=== PATIENT | male | born 1955 | race Caucasian/White ===

== ENCOUNTER 2020-08-15 16:35 | Inpatient (IN) ==
[2020-08-15] MEDS ORDERED: Piperacillin/Tazobactam 3.375 GM in 0.9 % Sodium Chloride Mini Bag 100 ML IVPB STA (16:48)
[2020-08-15] MEDS ORDERED: Ondansetron 4 MG/2 ML VIAL IVP STA (16:58)
[2020-08-15] MEDS ORDERED: Piperacillin/Tazobactam 3.375 GM in Water for inj. (sterile) 20 ML IVP STA (17:12)
[2020-08-15] MEDS ORDERED: Acetaminophen 325 MG TABLET PO PRN (18:51)
[2020-08-15] MEDS ORDERED: *HR* OxyCODONE Immed Rel 5 MG TABLET PO PRN (18:51)
[2020-08-15] MEDS ORDERED: D5% in Water 1,000 ML IVC PRN (18:51)
[2020-08-15] MEDS ORDERED: Naloxone 0.4 MG/ML INJ IVP PRN (18:51)
[2020-08-15] MEDS ORDERED: Dextrose Gel 15 GM/37.5 ML TUBE PO PRN ×2 (18:51)
[2020-08-15] MEDS ORDERED: *HR* Dextrose 50 % in Water (Vial) 50 ML VIAL IVP PRN (18:51)
[2020-08-15] MEDS ORDERED: Ondansetron 4 MG/2 ML VIAL IVP PRN (18:51)
[2020-08-15] MEDS ORDERED: Vancomycin 1,250 MG/262.5 ML IV.SOLN IVPB ONE (19:00)
[2020-08-15] MEDS: Gabapentin 300 MG CAPSULE PO SCH (20:52)
[2020-08-15] MEDS: Insulin LISPRO 300 UNITS/3 ML VIAL SUBQ SCH (20:55)
[2020-08-15 21:19] LABS: Basophils # 0.1 K/mcL (0.0-0.2); Basophils % 0.5 %; Eosinophils # 0.2 K/mcL (0.0-0.6); Eosinophils % 2.3 %; Hematocrit 35.6 % (37.5-50.1); Hemoglobin 11.7 g/dL (12.9-16.9); Immature Granulocytes % 0.3 % (0-4); Lymphocytes # 1.7 K/mcL (0.6-4.6); Lymphocytes % 17.5 %; Mean Corpuscular HGB Conc 32.9 g/dL (31.6-35.5); Mean Corpuscular Hemoglobin 28.7 pg (28.0-33.3); Mean Corpuscular Volume 87.3 fL (83.0-100.0); Mean Platelet Volume 9.4 fL (9.4-12.4); Monocytes # 1.1 K/mcL (0.0-1.3); Monocytes % 11.5 %; Neutrophils # 6.5 K/mcL (1.6-8.9); Platelet Count 301 K/mcL (140-400); Red Blood Count 4.08 M/mcL (4.19-5.50); Red Cell Distribution Width 12.4 % (11.5-14.5); Segmented Neutrophils % 67.9 %; White Blood Count 9.5 K/mcL (4.3-11.1)
[2020-08-15 21:39] LABS: Alanine Aminotransferase 16 Units/L (7-52); Albumin 3.4 g/dL (3.5-5.7); Alkaline Phosphatase 41 Units/L (34-104); Aspartate Amino Transferase 12 Units/L (13-39); BUN/Creatinine Ratio 13 (6-26); Bilirubin,Total 0.7 mg/dL (0.3-1.0); Blood Urea Nitrogen 12 mg/dL (8-23); C-Reactive Protein 109 mg/L (Less than 10); Calcium 8.4 mg/dL (8.6-10.3); Carbon Dioxide 25 mEq/L (23-29); Chloride 101 mEq/L (98-107); Globulin 3.3 g/dL (2.4-3.5); Glucose 162 mg/dL (70-105); Osmolality,Calculated 285 (280-300); Potassium 3.6 mEq/L (3.5-5.1); Sodium 136 mEq/L (136-145); Total Protein 6.7 g/dL (6.4-8.9); eGFR For African Americans > 60 (> 60); eGFR For Non-African Americans > 60 (> 60)
[2020-08-15 23:41] LABS: Estimated Average Glucose 349 mg/dl; Hemoglobin A1C 13.8 %
[2020-08-16] MEDS: Piperacillin/Tazobactam 3.375 GM in 0.9 % Sodium Chloride Mini Bag 100 ML IVPB SCH ×3 (00:14→17:19)
[2020-08-16 04:48] LABS: Basophils % 0.5 %; Eosinophils # 0.3 K/mcL (0.0-0.6); Eosinophils % 3.3 %; Hematocrit 34.4 % (37.5-50.1); Hemoglobin 11.1 g/dL (12.9-16.9); Immature Granulocytes % 0.2 % (0-4); Lymphocytes # 1.7 K/mcL (0.6-4.6); Lymphocytes % 19.2 %; Mean Corpuscular HGB Conc 32.3 g/dL (31.6-35.5); Mean Corpuscular Hemoglobin 28.6 pg (28.0-33.3); Mean Corpuscular Volume 88.7 fL (83.0-100.0); Mean Platelet Volume 9.6 fL (9.4-12.4); Monocytes # 1.2 K/mcL (0.0-1.3); Monocytes % 13.5 %; Neutrophils # 5.6 K/mcL (1.6-8.9); Platelet Count 287 K/mcL (140-400); Red Blood Count 3.88 M/mcL (4.19-5.50); Red Cell Distribution Width 12.3 % (11.5-14.5); Segmented Neutrophils % 63.3 %; White Blood Count 8.8 K/mcL (4.3-11.1)
[2020-08-16 05:03] LABS: BUN/Creatinine Ratio 12 (6-26); Blood Urea Nitrogen 13 mg/dL (8-23); Calcium 8.2 mg/dL (8.6-10.3); Carbon Dioxide 27 mEq/L (23-29); Chloride 102 mEq/L (98-107); Glucose 241 mg/dL (70-105); Osmolality,Calculated 292 (280-300); Potassium 3.5 mEq/L (3.5-5.1); Sodium 137 mEq/L (136-145); eGFR For African Americans > 60 (> 60); eGFR For Non-African Americans > 60 (> 60)
[2020-08-16] MEDS: Vancomycin 1,250 MG/262.5 ML IV.SOLN IVPB SCH ×2 (05:59→18:11)
[2020-08-16] MEDS: Insulin DETEMIR 100 UNIT/ML X5UNITS SUBQ SCH ×2 (08:20→22:01)
[2020-08-16] MEDS: Insulin LISPRO 300 UNITS/3 ML VIAL SUBQ SCH ×4 (08:21→22:01)
[2020-08-16] MEDS ORDERED: Albuterol 2.5 MG/3 ML NEBULIZER IH PRN (17:01)
[2020-08-16] MEDS: *HR* Heparin 5,000 UNIT/ML VIAL SQ SCH (17:20)
[2020-08-16] MEDS: Magnesium Oxide 400 MG TABLET PO SCH (18:11)
[2020-08-16] MEDS: Gabapentin 300 MG CAPSULE PO SCH (22:01)
[2020-08-16] MEDS: *HR* HYDROcodone/Acet 5/325 mg TABLET PO PRN (22:19)
[2020-08-17] MEDS: Piperacillin/Tazobactam 3.375 GM in 0.9 % Sodium Chloride Mini Bag 100 ML IVPB SCH ×3 (00:01→17:21)
[2020-08-17 02:27] LABS: Basophils # 0.1 K/mcL (0.0-0.2); Basophils % 0.5 %; Eosinophils # 0.2 K/mcL (0.0-0.6); Eosinophils % 2.3 %; Hematocrit 32.6 % (37.5-50.1); Hemoglobin 10.6 g/dL (12.9-16.9); Immature Granulocytes % 0.4 % (0-4); Lymphocytes # 1.8 K/mcL (0.6-4.6); Lymphocytes % 17.8 %; Mean Corpuscular HGB Conc 32.5 g/dL (31.6-35.5); Mean Corpuscular Hemoglobin 29.4 pg (28.0-33.3); Mean Corpuscular Volume 90.6 fL (83.0-100.0); Mean Platelet Volume 9.5 fL (9.4-12.4); Monocytes # 1.2 K/mcL (0.0-1.3); Monocytes % 12.4 %; Neutrophils # 6.6 K/mcL (1.6-8.9); Platelet Count 282 K/mcL (140-400); Segmented Neutrophils % 66.6 %; White Blood Count 9.8 K/mcL (4.3-11.1)
[2020-08-17 02:49] LABS: Calcium 7.8 mg/dL (8.6-10.3); Potassium 3.5 mEq/L (3.5-5.1)
[2020-08-17] MEDS: *HR* Heparin 5,000 UNIT/ML VIAL SQ SCH ×2 (06:04→17:23)
[2020-08-17] MEDS ORDERED: Ringers Solution, Lactated 1,000 ML IVC SCH (07:15)
[2020-08-17] MEDS: Aspirin Enteric Coated 81 MG Tablet PO SCH (09:20)
[2020-08-17] MEDS: Magnesium Oxide 400 MG TABLET PO SCH (09:20)
[2020-08-17] MEDS: Insulin LISPRO 300 UNITS/3 ML VIAL SUBQ SCH ×7 (09:21→20:23)
[2020-08-17] MEDS: Insulin DETEMIR 100 UNIT/ML X5UNITS SUBQ SCH ×2 (09:37→20:25)
[2020-08-17] MEDS: Vancomycin 1,500 MG/265 ML IV.SOLN IVPB SCH ×2 (10:54→21:47)
[2020-08-17] MEDS: Vancomycin 1,250 MG/262.5 ML IV.SOLN IVPB SCH (15:56)
[2020-08-17 18:13] LABS: Adenovirus F 40/41 PCR Not detected (Not detect); Astrovirus PCR Not detected (Not detect); C.difficile Toxin A/B Gene PCR Not detected (Not detect); Campylobacter by PCR Not detected (Not detect); Cryptosporidium by PCR Not detected (Not detect); Cyclospora cayetanensis PCR Not detected (Not detect); E. coli O157 by PCR Not detected (Not detect); Entamoeba histolytica PCR Not detected (Not detect); Enteroaggregative E.coli(EAEC) Not detected (Not detect); Enteropathogenic E.coli(EPEC) Not detected (Not detect); Enterotoxigenic E.coli (ETEC) Not detected (Not detect); Giardia lamblia PCR Not detected (Not detect); Norovirus GI/GII PCR Not detected (Not detect); Plesiomonas shigelloides PCR Not detected (Not detect); Rotavirus A PCR Not detected (Not detect); Salmonella PCR Not detected (Not detect); Sapovirus PCR Not detected (Not detect); Shig/EnteroinvasiveE coli EIEC Not detected (Not detect); Shigalike tox-prod E coli STEC Not detected (Not detect); Vibrio PCR Not detected (Not detect); Vibrio cholerae PCR Not detected (Not detect); Yersinia enterocolitica PCR Not detected (Not detect)
[2020-08-17] MEDS: Gabapentin 300 MG CAPSULE PO SCH (20:25)
[2020-08-17] MEDS: *HR* HYDROcodone/Acet 5/325 mg TABLET PO PRN (20:26)
[2020-08-17] MEDS ORDERED: Vancomycin 1 EACH in 0.9 % Sodium Chloride 250 ML IVPB SCH (22:00)
[2020-08-18] MEDS: Piperacillin/Tazobactam 3.375 GM in 0.9 % Sodium Chloride Mini Bag 100 ML IVPB SCH ×3 (00:53→18:29)
[2020-08-18] MEDS: *HR* Heparin 5,000 UNIT/ML VIAL SQ SCH ×2 (05:09→18:30)
[2020-08-18 05:42] LABS: Basophils % 0.5 %; Eosinophils # 0.3 K/mcL (0.0-0.6); Eosinophils % 3.2 %; Hematocrit 32.9 % (37.5-50.1); Hemoglobin 10.5 g/dL (12.9-16.9); Immature Granulocytes % 0.3 % (0-4); Lymphocytes # 1.4 K/mcL (0.6-4.6); Lymphocytes % 15.9 %; Mean Corpuscular HGB Conc 31.9 g/dL (31.6-35.5); Mean Corpuscular Hemoglobin 28.5 pg (28.0-33.3); Mean Corpuscular Volume 89.4 fL (83.0-100.0); Mean Platelet Volume 9.6 fL (9.4-12.4); Monocytes # 1.2 K/mcL (0.0-1.3); Monocytes % 13.8 %; Neutrophils # 5.8 K/mcL (1.6-8.9); Platelet Count 289 K/mcL (140-400); Red Blood Count 3.68 M/mcL (4.19-5.50); Segmented Neutrophils % 66.3 %; White Blood Count 8.8 K/mcL (4.3-11.1)
[2020-08-18 06:05] LABS: Calcium 8.1 mg/dL (8.6-10.3); Potassium 3.6 mEq/L (3.5-5.1)
[2020-08-18 06:07] LABS: Magnesium 1.9 mg/dL (1.6-2.6); Phosphorous 3.3 mg/dL (2.7-4.5)
[2020-08-18] MEDS: Magnesium Oxide 400 MG TABLET PO SCH (08:25)
[2020-08-18] MEDS: Aspirin Enteric Coated 81 MG Tablet PO SCH (08:25)
[2020-08-18] MEDS: Insulin LISPRO 300 UNITS/3 ML VIAL SUBQ SCH ×7 (08:27→21:47)
[2020-08-18] MEDS ORDERED: Lidocaine -MPF 2% 2 ML VIAL ONE (18:49)
[2020-08-18] MEDS ORDERED: Albuterol 2.5 MG/3 ML NEBULIZER IH PRN (20:05)
[2020-08-18] MEDS ORDERED: Dextrose Gel 15 GM/37.5 ML TUBE PO PRN ×2 (20:05)
[2020-08-18] MEDS ORDERED: Acetaminophen 325 MG TABLET PO PRN (20:05)
[2020-08-18] MEDS ORDERED: Naloxone 0.4 MG/ML INJ IVP PRN (20:05)
[2020-08-18] MEDS ORDERED: D5% in Water 1,000 ML IVC PRN (20:05)
[2020-08-18] MEDS ORDERED: *HR* Dextrose 50 % in Water (Vial) 50 ML VIAL IVP PRN (20:05)
[2020-08-18] MEDS ORDERED: *HR* OxyCODONE Immed Rel 5 MG TABLET PO PRN (20:05)
[2020-08-18] MEDS ORDERED: Perflutren Lipid Microsphere 1.3 ML in 0.9 % Sodium Chloride 8.7 ML IVP PRN (20:23)
[2020-08-18] MEDS ORDERED: Insulin DETEMIR 100 UNIT/ML X5UNITS SUBQ SCH ×2 (21:00)
[2020-08-18] MEDS: Gabapentin 300 MG CAPSULE PO SCH (22:00)
[2020-08-19] MEDS: Piperacillin/Tazobactam 3.375 GM in 0.9 % Sodium Chloride Mini Bag 100 ML IVPB SCH ×4 (00:06→23:52)
[2020-08-19] MEDS: *HR* Heparin 5,000 UNIT/ML VIAL SQ SCH ×2 (05:28→16:43)
[2020-08-19 06:41] LABS: Basophils % 0.4 %; Eosinophils # 0.2 K/mcL (0.0-0.6); Hematocrit 34.2 % (37.5-50.1); Immature Granulocytes % 0.2 % (0-4); Lymphocytes # 1.1 K/mcL (0.6-4.6); Lymphocytes % 12.1 %; Mean Corpuscular HGB Conc 32.2 g/dL (31.6-35.5); Mean Corpuscular Hemoglobin 28.4 pg (28.0-33.3); Mean Corpuscular Volume 88.1 fL (83.0-100.0); Mean Platelet Volume 9.1 fL (9.4-12.4); Monocytes # 0.9 K/mcL (0.0-1.3); Monocytes % 9.8 %; Neutrophils # 6.8 K/mcL (1.6-8.9); Platelet Count 304 K/mcL (140-400); Red Blood Count 3.88 M/mcL (4.19-5.50); Red Cell Distribution Width 12.1 % (11.5-14.5); Segmented Neutrophils % 75.5 %
[2020-08-19 06:53] LABS: BUN/Creatinine Ratio 12 (6-26); Blood Urea Nitrogen 14 mg/dL (8-23); Calcium 8.1 mg/dL (8.6-10.3); Carbon Dioxide 25 mEq/L (23-29); Chloride 108 mEq/L (98-107); Glucose 235 mg/dL (70-105); Magnesium 1.9 mg/dL (1.6-2.6); Osmolality,Calculated 298 (280-300); Phosphorous 3.2 mg/dL (2.7-4.5); Potassium 3.6 mEq/L (3.5-5.1); Sodium 140 mEq/L (136-145); eGFR For African Americans > 60 (> 60); eGFR For Non-African Americans > 60 (> 60)
[2020-08-19] MEDS ORDERED: Insulin LISPRO 300 UNITS/3 ML VIAL SUBQ SCH (08:00)
[2020-08-19] MEDS: Aspirin Enteric Coated 81 MG Tablet PO SCH (08:47)
[2020-08-19] MEDS: *HR* HYDROcodone/Acet 5/325 mg TABLET PO PRN ×2 (08:47→19:11)
[2020-08-19] MEDS: Insulin LISPRO 300 UNITS/3 ML VIAL SUBQ SCH ×7 (08:48→20:27)
[2020-08-19] MEDS: Magnesium Oxide 400 MG TABLET PO SCH (08:48)
[2020-08-19] MEDS: Insulin DETEMIR 100 UNIT/ML X5UNITS SUBQ SCH ×2 (16:31→20:26)
[2020-08-19] MEDS: Ondansetron 4 MG/2 ML VIAL IVP PRN (20:24)
[2020-08-19] MEDS: Lactobacillus 1 EACH CAP.SPRINK PO SCH (20:24)
[2020-08-19] MEDS: Gabapentin 300 MG CAPSULE PO SCH (20:41)
[2020-08-20 05:11] LABS: Hematocrit 31.2 % (37.5-50.1); Hemoglobin 9.8 g/dL (12.9-16.9)
[2020-08-20 05:31] LABS: BUN/Creatinine Ratio 11 (6-26); Blood Urea Nitrogen 15 mg/dL (8-23); Carbon Dioxide 26 mEq/L (23-29); Chloride 108 mEq/L (98-107); Glucose 254 mg/dL (70-105); Osmolality,Calculated 301 (280-300); Phosphorous 3.5 mg/dL (2.7-4.5); Potassium 3.6 mEq/L (3.5-5.1); Sodium 141 mEq/L (136-145); eGFR For African Americans > 60 (> 60); eGFR For Non-African Americans 54 (> 60)
[2020-08-20] MEDS: *HR* Heparin 5,000 UNIT/ML VIAL SQ SCH ×2 (05:53→16:43)
[2020-08-20] MEDS: Lactobacillus 1 EACH CAP.SPRINK PO SCH ×2 (09:02→20:46)
[2020-08-20] MEDS: Magnesium Oxide 400 MG TABLET PO SCH (09:02)
[2020-08-20] MEDS: Aspirin Enteric Coated 81 MG Tablet PO SCH (09:02)
[2020-08-20] MEDS: lisinopriL 5 MG TABLET PO SCH (09:03)
[2020-08-20] MEDS: Piperacillin/Tazobactam 3.375 GM in 0.9 % Sodium Chloride Mini Bag 100 ML IVPB SCH (09:03)
[2020-08-20] MEDS: Insulin LISPRO 300 UNITS/3 ML VIAL SUBQ SCH ×5 (09:06→16:24)
[2020-08-20] MEDS ORDERED: 0.9 % Sodium Chloride 1,000 ML IVC SCH (09:15)
[2020-08-20] MEDS: Insulin DETEMIR 100 UNIT/ML X5UNITS SUBQ SCH ×3 (09:15→20:46)
[2020-08-20] MEDS ORDERED: Insulin LISPRO 300 UNITS/3 ML VIAL SUBQ SCH (13:20)
[2020-08-20] MEDS: cefTRIAXone 2,000 MG in 0.9 % Sodium Chloride Mini Bag 100 ML IVPB SCH (13:39)
[2020-08-20] MEDS: metroNIDAZOLE 500 MG TABLET PO SCH ×2 (15:24→20:46)
[2020-08-20] MEDS: Gabapentin 300 MG CAPSULE PO SCH (20:46)
[2020-08-20] MEDS: *HR* HYDROcodone/Acet 5/325 mg TABLET PO PRN (20:46)
[2020-08-21 03:29] LABS: Basophils % 0.4 %; Eosinophils # 0.2 K/mcL (0.0-0.6); Eosinophils % 2.8 %; Hematocrit 31.5 % (37.5-50.1); Hemoglobin 10.3 g/dL (12.9-16.9); Immature Granulocytes % 0.4 % (0-4); Lymphocytes # 1.3 K/mcL (0.6-4.6); Lymphocytes % 15.8 %; Mean Corpuscular HGB Conc 32.7 g/dL (31.6-35.5); Mean Corpuscular Hemoglobin 28.9 pg (28.0-33.3); Mean Corpuscular Volume 88.2 fL (83.0-100.0); Mean Platelet Volume 9.1 fL (9.4-12.4); Monocytes # 1.1 K/mcL (0.0-1.3); Monocytes % 13.4 %; Neutrophils # 5.6 K/mcL (1.6-8.9); Platelet Count 346 K/mcL (140-400); Red Blood Count 3.57 M/mcL (4.19-5.50); Segmented Neutrophils % 67.2 %; White Blood Count 8.3 K/mcL (4.3-11.1)
[2020-08-21 03:49] LABS: % Iron Saturation 10 % (20-55); BUN/Creatinine Ratio 10 (6-26); Blood Urea Nitrogen 12 mg/dL (8-23); Calcium 7.8 mg/dL (8.6-10.3); Carbon Dioxide 28 mEq/L (23-29); Chloride 108 mEq/L (98-107); Glucose 184 mg/dL (70-105); Iron 30 mcg/dL (65-175); Magnesium 1.9 mg/dL (1.6-2.6); Osmolality,Calculated 299 (280-300); Phosphorous 3.1 mg/dL (2.7-4.5); Potassium 3.3 mEq/L (3.5-5.1); Sodium 142 mEq/L (136-145); Transferrin 210 mg/dL (203-362); eGFR For African Americans > 60 (> 60); eGFR For Non-African Americans 58 (> 60)
[2020-08-21 04:07] LABS: Ferritin 76 ng/mL (20-250)
[2020-08-21 04:12] LABS: Folate 6.8 ng/mL (3.0-16.0)
[2020-08-21] MEDS: *HR* Heparin 5,000 UNIT/ML VIAL SQ SCH ×2 (06:15→20:18)
[2020-08-21] MEDS: Insulin LISPRO 300 UNITS/3 ML VIAL SUBQ SCH ×4 (10:03→20:18)
[2020-08-21] MEDS: lisinopriL 5 MG TABLET PO SCH (10:05)
[2020-08-21] MEDS: metroNIDAZOLE 500 MG TABLET PO SCH ×3 (10:06→20:16)
[2020-08-21] MEDS: cefTRIAXone 2,000 MG in 0.9 % Sodium Chloride Mini Bag 100 ML IVPB SCH (10:06)
[2020-08-21] MEDS: Aspirin Enteric Coated 81 MG Tablet PO SCH (10:06)
[2020-08-21] MEDS: Magnesium Oxide 400 MG TABLET PO SCH (10:06)
[2020-08-21] MEDS: Lactobacillus 1 EACH CAP.SPRINK PO SCH ×2 (10:06→20:16)
[2020-08-21] MEDS: Ondansetron 4 MG/2 ML VIAL IVP PRN (10:08)
[2020-08-21] MEDS: Insulin DETEMIR 100 UNIT/ML X5UNITS SUBQ SCH ×2 (10:22→20:17)
[2020-08-21] MEDS ORDERED: *HR* Midazolam HCl 2 MG/2 ML VIAL ONE (15:57)
[2020-08-21] MEDS ORDERED: *HR* FentaNYL (PF) 100 MCG/2 ML VIAL ONE (15:57)
[2020-08-21] MEDS ORDERED: *HR* Propofol 200 MG/20 ML VIAL IVP ONE (15:57)
[2020-08-21] MEDS ORDERED: Ondansetron 4 MG/2 ML VIAL ONE (16:22)
[2020-08-21] MEDS ORDERED: Promethazine 6.25 MG in Water for inj. (sterile) 20 ML IVPB PRN ×2 (16:32→17:53)
[2020-08-21] MEDS ORDERED: *HR* Labetalol 20 MG/4 ML SYRINGE IVP PRN ×2 (16:32→17:53)
[2020-08-21] MEDS ORDERED: *HR* HYDROcodone/Acet 7.5/325 mg TABLET PO PRN ×2 (16:32→17:53)
[2020-08-21] MEDS ORDERED: *HR* HYDROmorphone 2 MG TABLET PO PRN ×2 (16:32→17:53)
[2020-08-21] MEDS ORDERED: Ketorolac 15 MG/ML VIAL IVP PRN ×2 (16:32→17:53)
[2020-08-21] MEDS ORDERED: D5% in Water 1,000 ML IVC PRN (17:53)
[2020-08-21] MEDS ORDERED: Naloxone 0.4 MG/ML INJ IVP PRN (17:53)
[2020-08-21] MEDS ORDERED: Perflutren Lipid Microsphere 1.3 ML in 0.9 % Sodium Chloride 8.7 ML IVP PRN (17:53)
[2020-08-21] MEDS ORDERED: *HR* Dextrose 50 % in Water (Vial) 50 ML VIAL IVP PRN (17:53)
[2020-08-21] MEDS ORDERED: Acetaminophen 325 MG TABLET PO PRN (17:53)
[2020-08-21] MEDS ORDERED: Dextrose Gel 15 GM/37.5 ML TUBE PO PRN ×2 (17:53)
[2020-08-21] MEDS ORDERED: Albuterol 2.5 MG/3 ML NEBULIZER IH PRN (17:53)
[2020-08-21] MEDS: *HR* HYDROcodone/Acet 5/325 mg TABLET PO PRN (20:16)
[2020-08-21] MEDS: Sennosides/Docusate Sodium TABLET PO SCH (20:16)
[2020-08-21] MEDS: Gabapentin 300 MG CAPSULE PO SCH (20:16)
[2020-08-21] MEDS ORDERED: Sennosides/Docusate Sodium TABLET PO SCH (21:00)
[2020-08-22] MEDS: Ondansetron 4 MG/2 ML VIAL IVP PRN (05:11)
[2020-08-22] MEDS: *HR* Heparin 5,000 UNIT/ML VIAL SQ SCH ×2 (05:11→16:26)
[2020-08-22 05:27] LABS: Basophils % 0.3 %; Eosinophils # 0.2 K/mcL (0.0-0.6); Hematocrit 33.4 % (37.5-50.1); Hemoglobin 10.8 g/dL (12.9-16.9); Immature Granulocytes % 0.5 % (0-4); Lymphocytes # 1.1 K/mcL (0.6-4.6); Lymphocytes % 10.4 %; Mean Corpuscular HGB Conc 32.3 g/dL (31.6-35.5); Mean Corpuscular Hemoglobin 28.6 pg (28.0-33.3); Mean Corpuscular Volume 88.6 fL (83.0-100.0); Mean Platelet Volume 8.8 fL (9.4-12.4); Monocytes # 1.2 K/mcL (0.0-1.3); Monocytes % 10.8 %; Neutrophils # 8.1 K/mcL (1.6-8.9); Platelet Count 345 K/mcL (140-400); Red Blood Count 3.77 M/mcL (4.19-5.50); Red Cell Distribution Width 12.3 % (11.5-14.5); White Blood Count 10.7 K/mcL (4.3-11.1)
[2020-08-22 05:48] LABS: BUN/Creatinine Ratio 10 (6-26); Blood Urea Nitrogen 11 mg/dL (8-23); Calcium 8.2 mg/dL (8.6-10.3); Carbon Dioxide 30 mEq/L (23-29); Chloride 107 mEq/L (98-107); Glucose 101 mg/dL (70-105); Osmolality,Calculated 296 (280-300); Phosphorous 3.7 mg/dL (2.7-4.5); Potassium 3.5 mEq/L (3.5-5.1); Sodium 143 mEq/L (136-145); eGFR For African Americans > 60 (> 60); eGFR For Non-African Americans > 60 (> 60)
[2020-08-22] MEDS: Insulin LISPRO 300 UNITS/3 ML VIAL SUBQ SCH ×4 (08:08→21:21)
[2020-08-22] MEDS: cefTRIAXone 2,000 MG in 0.9 % Sodium Chloride Mini Bag 100 ML IVPB SCH (08:36)
[2020-08-22] MEDS: Lactobacillus 1 EACH CAP.SPRINK PO SCH ×2 (08:38→21:20)
[2020-08-22] MEDS: Aspirin Enteric Coated 81 MG Tablet PO SCH (08:38)
[2020-08-22] MEDS: Magnesium Oxide 400 MG TABLET PO SCH (08:39)
[2020-08-22] MEDS: Sennosides/Docusate Sodium TABLET PO SCH ×2 (08:39→21:20)
[2020-08-22] MEDS: metroNIDAZOLE 500 MG TABLET PO SCH ×3 (08:39→21:20)
[2020-08-22] MEDS: Insulin DETEMIR 100 UNIT/ML X5UNITS SUBQ SCH ×2 (08:43→21:21)
[2020-08-22] MEDS ORDERED: lisinopriL 5 MG TABLET PO SCH (09:00)
[2020-08-22] MEDS ORDERED: lisinopriL 5 MG TABLET PO ONE (09:21)
[2020-08-22 11:19] LABS: Adenovirus Not Detected (Not Detect); Bordetella Pertussis Not Detected (Not Detect); Chlamydophila pneumoniae Not Detected (Not Detect); Coronavirus 229E Not Detected (Not Detect); Coronavirus HKU1 Not Detected (Not Detect); Coronavirus NL63 Not Detected (Not Detect); Coronavirus OC43 Not Detected (Not Detect); Human Metapneumovirus Not Detected (Not Detect); Human Rhinovirus/Enterovirus Not Detected (Not Detect); Influenza A Subtype 2009 H1 Not Detected (Not Detect); Influenza B Not Detected (Not Detect); Mycoplasma pneumoniae Not Detected (Not Detect); Parainfluenza Virus 1 Not Detected (Not Detect); Parainfluenza Virus 2 Not Detected (Not Detect); Parainfluenza Virus 3 Not Detected (Not Detect); Parainfluenza Virus 4 Not Detected (Not Detect); Respiratory Syncytial Virus Not Detected (Not Detect); SARS-CoV-2 Not Detected (Not Detect)
[2020-08-22] MEDS: polyethylene glycoL 3350 17 GM POWD.PACK PO SCH (11:31)
[2020-08-22] MEDS: Gabapentin 300 MG CAPSULE PO SCH (21:20)
[2020-08-23] MEDS: Ondansetron 4 MG/2 ML VIAL IVP PRN ×3 (00:49→21:50)
[2020-08-23 04:51] LABS: Basophils % 0.4 %; Eosinophils # 0.1 K/mcL (0.0-0.6); Eosinophils % 0.6 %; Hematocrit 35.1 % (37.5-50.1); Hemoglobin 11.2 g/dL (12.9-16.9); Immature Granulocytes % 0.4 % (0-4); Lymphocytes # 1.1 K/mcL (0.6-4.6); Lymphocytes % 11.1 %; Mean Corpuscular HGB Conc 31.9 g/dL (31.6-35.5); Mean Corpuscular Hemoglobin 28.1 pg (28.0-33.3); Mean Platelet Volume 8.8 fL (9.4-12.4); Monocytes # 0.6 K/mcL (0.0-1.3); Monocytes % 6.7 %; Neutrophils # 7.7 K/mcL (1.6-8.9); Platelet Count 388 K/mcL (140-400); Red Blood Count 3.99 M/mcL (4.19-5.50); Segmented Neutrophils % 80.8 %; White Blood Count 9.6 K/mcL (4.3-11.1)
[2020-08-23] MEDS: polyethylene glycoL 3350 17 GM POWD.PACK PO SCH (04:53)
[2020-08-23 05:10] LABS: BUN/Creatinine Ratio 10 (6-26); Blood Urea Nitrogen 10 mg/dL (8-23); Calcium 8.4 mg/dL (8.6-10.3); Carbon Dioxide 29 mEq/L (23-29); Chloride 103 mEq/L (98-107); Glucose 178 mg/dL (70-105); Osmolality,Calculated 295 (280-300); Phosphorous 3.4 mg/dL (2.7-4.5); Potassium 3.8 mEq/L (3.5-5.1); Sodium 141 mEq/L (136-145); eGFR For African Americans > 60 (> 60); eGFR For Non-African Americans > 60 (> 60)
[2020-08-23] MEDS: *HR* Heparin 5,000 UNIT/ML VIAL SQ SCH ×2 (05:14→18:56)
[2020-08-23] MEDS: cefTRIAXone 2,000 MG in 0.9 % Sodium Chloride Mini Bag 100 ML IVPB SCH (08:44)
[2020-08-23] MEDS: Aspirin Enteric Coated 81 MG Tablet PO SCH (12:50)
[2020-08-23] MEDS: Insulin LISPRO 300 UNITS/3 ML VIAL SUBQ SCH ×4 (12:50→22:25)
[2020-08-23] MEDS: Lactobacillus 1 EACH CAP.SPRINK PO SCH ×2 (12:51→21:50)
[2020-08-23] MEDS: Sennosides/Docusate Sodium TABLET PO SCH ×2 (12:51→21:50)
[2020-08-23] MEDS: lisinopriL 5 MG TABLET PO SCH (12:51)
[2020-08-23] MEDS: Insulin DETEMIR 100 UNIT/ML X5UNITS SUBQ SCH ×2 (12:51→22:09)
[2020-08-23] MEDS: Magnesium Oxide 400 MG TABLET PO SCH (12:51)
[2020-08-23] MEDS: metroNIDAZOLE 500 MG TABLET PO SCH ×3 (18:55→21:50)
[2020-08-23] MEDS: Gabapentin 300 MG CAPSULE PO SCH (21:49)
[2020-08-23] MEDS: *HR* OxyCODONE Immed Rel 5 MG TABLET PO PRN (21:50)
[2020-08-24] MEDS: *HR* Heparin 5,000 UNIT/ML VIAL SQ SCH ×2 (05:29→17:13)
[2020-08-24 05:52] LABS: Basophils % 0.5 %; Eosinophils # 0.2 K/mcL (0.0-0.6); Eosinophils % 2.3 %; Hematocrit 34.3 % (37.5-50.1); Immature Granulocytes % 0.6 % (0-4); Lymphocytes # 1.4 K/mcL (0.6-4.6); Lymphocytes % 17.6 %; Mean Corpuscular HGB Conc 32.1 g/dL (31.6-35.5); Mean Corpuscular Hemoglobin 28.5 pg (28.0-33.3); Mean Corpuscular Volume 88.9 fL (83.0-100.0); Mean Platelet Volume 8.9 fL (9.4-12.4); Monocytes # 0.9 K/mcL (0.0-1.3); Monocytes % 11.8 %; Neutrophils # 5.4 K/mcL (1.6-8.9); Platelet Count 395 K/mcL (140-400); Red Blood Count 3.86 M/mcL (4.19-5.50); Red Cell Distribution Width 12.3 % (11.5-14.5); Segmented Neutrophils % 67.2 %
[2020-08-24 06:04] LABS: BUN/Creatinine Ratio 12 (6-26); Blood Urea Nitrogen 14 mg/dL (8-23); Calcium 8.7 mg/dL (8.6-10.3); Carbon Dioxide 34 mEq/L (23-29); Chloride 104 mEq/L (98-107); Glucose 182 mg/dL (70-105); Osmolality,Calculated 301 (280-300); Potassium 3.5 mEq/L (3.5-5.1); Sodium 143 mEq/L (136-145); eGFR For African Americans > 60 (> 60); eGFR For Non-African Americans > 60 (> 60)
[2020-08-24] MEDS: cefTRIAXone 2,000 MG in 0.9 % Sodium Chloride Mini Bag 100 ML IVPB SCH (08:18)
[2020-08-24] MEDS: metroNIDAZOLE 500 MG TABLET PO SCH ×3 (08:18→21:17)
[2020-08-24] MEDS: Sennosides/Docusate Sodium TABLET PO SCH ×2 (08:18→21:17)
[2020-08-24] MEDS: Insulin LISPRO 300 UNITS/3 ML VIAL SUBQ SCH ×4 (08:19→21:24)
[2020-08-24] MEDS: Magnesium Oxide 400 MG TABLET PO SCH (08:19)
[2020-08-24] MEDS: Lactobacillus 1 EACH CAP.SPRINK PO SCH ×2 (08:20→21:17)
[2020-08-24] MEDS: polyethylene glycoL 3350 17 GM POWD.PACK PO SCH (08:20)
[2020-08-24] MEDS: lisinopriL 5 MG TABLET PO SCH (08:20)
[2020-08-24] MEDS: Aspirin Enteric Coated 81 MG Tablet PO SCH (08:20)
[2020-08-24] MEDS: Insulin DETEMIR 100 UNIT/ML X5UNITS SUBQ SCH ×2 (08:41→21:24)
[2020-08-24] MEDS: Ondansetron 4 MG/2 ML VIAL IVP PRN (17:16)
[2020-08-24] MEDS: *HR* OxyCODONE Immed Rel 5 MG TABLET PO PRN (21:17)
[2020-08-24] MEDS: Gabapentin 300 MG CAPSULE PO SCH (21:18)
[2020-08-25 04:09] LABS: Basophils # 0.1 K/mcL (0.0-0.2); Basophils % 0.6 %; Eosinophils # 0.3 K/mcL (0.0-0.6); Eosinophils % 2.8 %; Hematocrit 35.8 % (37.5-50.1); Hemoglobin 11.5 g/dL (12.9-16.9); Immature Granulocytes % 0.3 % (0-4); Lymphocytes # 1.4 K/mcL (0.6-4.6); Mean Corpuscular HGB Conc 32.1 g/dL (31.6-35.5); Mean Corpuscular Hemoglobin 28.7 pg (28.0-33.3); Mean Corpuscular Volume 89.3 fL (83.0-100.0); Mean Platelet Volume 8.8 fL (9.4-12.4); Monocytes # 0.9 K/mcL (0.0-1.3); Monocytes % 9.7 %; Neutrophils # 6.4 K/mcL (1.6-8.9); Platelet Count 396 K/mcL (140-400); Red Blood Count 4.01 M/mcL (4.19-5.50); Red Cell Distribution Width 12.5 % (11.5-14.5); Segmented Neutrophils % 70.6 %
[2020-08-25 04:27] LABS: BUN/Creatinine Ratio 13 (6-26); Blood Urea Nitrogen 16 mg/dL (8-23); Calcium 8.8 mg/dL (8.6-10.3); Carbon Dioxide 33 mEq/L (23-29); Chloride 101 mEq/L (98-107); Glucose 130 mg/dL (70-105); Osmolality,Calculated 295 (280-300); Potassium 3.4 mEq/L (3.5-5.1); Sodium 141 mEq/L (136-145); eGFR For African Americans > 60 (> 60); eGFR For Non-African Americans 57 (> 60)
[2020-08-25] MEDS: *HR* Heparin 5,000 UNIT/ML VIAL SQ SCH ×2 (05:54→17:28)
[2020-08-25] MEDS: Insulin LISPRO 300 UNITS/3 ML VIAL SUBQ SCH ×4 (09:24→21:22)
[2020-08-25] MEDS: metroNIDAZOLE 500 MG TABLET PO SCH ×3 (09:25→21:09)
[2020-08-25] MEDS: Magnesium Oxide 400 MG TABLET PO SCH (09:25)
[2020-08-25] MEDS: polyethylene glycoL 3350 17 GM POWD.PACK PO SCH (09:25)
[2020-08-25] MEDS: Sennosides/Docusate Sodium TABLET PO SCH ×2 (09:26→21:10)
[2020-08-25] MEDS: cefTRIAXone 2,000 MG in 0.9 % Sodium Chloride Mini Bag 100 ML IVPB SCH (09:26)
[2020-08-25] MEDS: Aspirin Enteric Coated 81 MG Tablet PO SCH (09:26)
[2020-08-25] MEDS: lisinopriL 5 MG TABLET PO SCH (09:26)
[2020-08-25] MEDS: Lactobacillus 1 EACH CAP.SPRINK PO SCH ×2 (09:26→21:10)
[2020-08-25] MEDS: Insulin DETEMIR 100 UNIT/ML X5UNITS SUBQ SCH ×2 (09:39→21:24)
[2020-08-25 12:29] LABS: C-Reactive Protein 6 mg/L (Less than 10)
[2020-08-25] MEDS: Vancomycin 1,250 MG/262.5 ML IV.SOLN IVPB SCH (13:32)
[2020-08-25] MEDS: Gabapentin 300 MG CAPSULE PO SCH (21:10)
[2020-08-25] MEDS: *HR* HYDROcodone/Acet 5/325 mg TABLET PO PRN (21:24)
[2020-08-26] MEDS: Vancomycin 1,250 MG/262.5 ML IV.SOLN IVPB SCH ×2 (01:03→11:53)
[2020-08-26 04:44] LABS: Basophils % 0.3 %; Eosinophils # 0.2 K/mcL (0.0-0.6); Eosinophils % 2.3 %; Hematocrit 34.9 % (37.5-50.1); Hemoglobin 11.6 g/dL (12.9-16.9); Immature Granulocytes % 0.3 % (0-4); Lymphocytes # 1.5 K/mcL (0.6-4.6); Mean Corpuscular HGB Conc 33.2 g/dL (31.6-35.5); Mean Corpuscular Hemoglobin 29.4 pg (28.0-33.3); Mean Corpuscular Volume 88.4 fL (83.0-100.0); Mean Platelet Volume 8.8 fL (9.4-12.4); Monocytes # 0.9 K/mcL (0.0-1.3); Monocytes % 9.5 %; Neutrophils # 6.7 K/mcL (1.6-8.9); Platelet Count 378 K/mcL (140-400); Red Blood Count 3.95 M/mcL (4.19-5.50); Red Cell Distribution Width 12.5 % (11.5-14.5); Segmented Neutrophils % 71.6 %; White Blood Count 9.4 K/mcL (4.3-11.1)
[2020-08-26 05:04] LABS: BUN/Creatinine Ratio 13 (6-26); Blood Urea Nitrogen 15 mg/dL (8-23); Calcium 8.4 mg/dL (8.6-10.3); Carbon Dioxide 31 mEq/L (23-29); Chloride 105 mEq/L (98-107); Glucose 143 mg/dL (70-105); Osmolality,Calculated 297 (280-300); Potassium 3.5 mEq/L (3.5-5.1); Sodium 142 mEq/L (136-145); eGFR For African Americans > 60 (> 60); eGFR For Non-African Americans > 60 (> 60)
[2020-08-26] MEDS: *HR* Heparin 5,000 UNIT/ML VIAL SQ SCH ×2 (05:27→16:46)
[2020-08-26] MEDS: Lactobacillus 1 EACH CAP.SPRINK PO SCH ×2 (08:31→22:18)
[2020-08-26] MEDS: cefTRIAXone 2,000 MG in 0.9 % Sodium Chloride Mini Bag 100 ML IVPB SCH (08:31)
[2020-08-26] MEDS: metroNIDAZOLE 500 MG TABLET PO SCH ×3 (08:31→22:14)
[2020-08-26] MEDS: Aspirin Enteric Coated 81 MG Tablet PO SCH (08:31)
[2020-08-26] MEDS: lisinopriL 5 MG TABLET PO SCH (08:31)
[2020-08-26] MEDS: Magnesium Oxide 400 MG TABLET PO SCH (08:31)
[2020-08-26] MEDS: polyethylene glycoL 3350 17 GM POWD.PACK PO SCH (08:34)
[2020-08-26] MEDS: Insulin LISPRO 300 UNITS/3 ML VIAL SUBQ SCH ×4 (08:35→22:18)
[2020-08-26] MEDS: Sennosides/Docusate Sodium TABLET PO SCH ×2 (08:39→22:14)
[2020-08-26] MEDS: Insulin DETEMIR 100 UNIT/ML X5UNITS SUBQ SCH ×2 (08:40→22:19)
[2020-08-26] MEDS: *HR* OxyCODONE Immed Rel 5 MG TABLET PO PRN ×2 (14:20→22:18)
[2020-08-26] MEDS: Gabapentin 300 MG CAPSULE PO SCH (22:14)
[2020-08-27] MEDS: Vancomycin 1,250 MG/262.5 ML IV.SOLN IVPB SCH ×3 (01:33→14:59)
[2020-08-27 05:03] LABS: Basophils % 0.3 %; Eosinophils # 0.3 K/mcL (0.0-0.6); Eosinophils % 2.8 %; Hematocrit 36.1 % (37.5-50.1); Hemoglobin 11.4 g/dL (12.9-16.9); Immature Granulocytes % 0.5 % (0-4); Lymphocytes # 1.4 K/mcL (0.6-4.6); Mean Corpuscular HGB Conc 31.6 g/dL (31.6-35.5); Mean Corpuscular Hemoglobin 28.1 pg (28.0-33.3); Mean Corpuscular Volume 88.9 fL (83.0-100.0); Mean Platelet Volume 8.9 fL (9.4-12.4); Monocytes # 1.1 K/mcL (0.0-1.3); Monocytes % 9.6 %; Neutrophils # 8.1 K/mcL (1.6-8.9); Platelet Count 399 K/mcL (140-400); Red Blood Count 4.06 M/mcL (4.19-5.50); Red Cell Distribution Width 12.7 % (11.5-14.5); Segmented Neutrophils % 73.8 %
[2020-08-27] MEDS: *HR* Heparin 5,000 UNIT/ML VIAL SQ SCH ×2 (05:07→17:34)
[2020-08-27 05:24] LABS: BUN/Creatinine Ratio 10 (6-26); Blood Urea Nitrogen 13 mg/dL (8-23); Calcium 8.6 mg/dL (8.6-10.3); Carbon Dioxide 31 mEq/L (23-29); Chloride 105 mEq/L (98-107); Glucose 155 mg/dL (70-105); Osmolality,Calculated 297 (280-300); Potassium 3.5 mEq/L (3.5-5.1); Sodium 142 mEq/L (136-145); eGFR For African Americans > 60 (> 60); eGFR For Non-African Americans 55 (> 60)
[2020-08-27] MEDS: Insulin LISPRO 300 UNITS/3 ML VIAL SUBQ SCH ×4 (07:51→20:04)
[2020-08-27] MEDS: metroNIDAZOLE 500 MG TABLET PO SCH ×3 (07:57→20:13)
[2020-08-27] MEDS: cefTRIAXone 2,000 MG in 0.9 % Sodium Chloride Mini Bag 100 ML IVPB SCH (07:58)
[2020-08-27] MEDS: Lactobacillus 1 EACH CAP.SPRINK PO SCH ×2 (07:58→20:13)
[2020-08-27] MEDS: Aspirin Enteric Coated 81 MG Tablet PO SCH (07:58)
[2020-08-27] MEDS: lisinopriL 5 MG TABLET PO SCH (07:58)
[2020-08-27] MEDS: Magnesium Oxide 400 MG TABLET PO SCH (07:58)
[2020-08-27] MEDS: Sennosides/Docusate Sodium TABLET PO SCH ×2 (07:58→20:13)
[2020-08-27] MEDS: polyethylene glycoL 3350 17 GM POWD.PACK PO SCH (07:59)
[2020-08-27] MEDS ORDERED: 0.9 % Sodium Chloride 1,000 ML IVC SCH ×2 (08:00→13:36)
[2020-08-27] MEDS: Insulin DETEMIR 100 UNIT/ML X5UNITS SUBQ SCH ×2 (08:01→20:14)
[2020-08-27] MEDS ORDERED: *HR* Midazolam HCl 2 MG/2 ML VIAL ONE (10:19)
[2020-08-27] MEDS ORDERED: *HR* FentaNYL (PF) 100 MCG/2 ML VIAL ONE (10:19)
[2020-08-27] MEDS ORDERED: *HR* Propofol 200 MG/20 ML VIAL IVP ONE (10:19)
[2020-08-27] MEDS ORDERED: Gentamicin 80 MG/2 ML VIAL ONE ×2 (11:30→12:16)
[2020-08-27] MEDS ORDERED: Tobramycin Sulf (Sterile) 1.2 GM VIAL ONE (11:30)
[2020-08-27] MEDS ORDERED: Vancomycin 1,000 MG VIAL ONE (11:36)
[2020-08-27] MEDS ORDERED: Lidocaine -MPF 2% 2 ML VIAL ONE (11:41)
[2020-08-27] MEDS ORDERED: Naloxone 0.4 MG/ML INJ IVP PRN (13:36)
[2020-08-27] MEDS ORDERED: *HR* HYDROmorphone 2 MG TABLET PO PRN (13:36)
[2020-08-27] MEDS ORDERED: D5% in Water 1,000 ML IVC PRN (13:36)
[2020-08-27] MEDS ORDERED: Albuterol 2.5 MG/3 ML NEBULIZER IH PRN (13:36)
[2020-08-27] MEDS ORDERED: Dextrose Gel 15 GM/37.5 ML TUBE PO PRN ×2 (13:36)
[2020-08-27] MEDS ORDERED: Ondansetron 4 MG/2 ML VIAL IVP PRN (13:36)
[2020-08-27] MEDS ORDERED: Perflutren Lipid Microsphere 1.3 ML in 0.9 % Sodium Chloride 8.7 ML IVP PRN (13:36)
[2020-08-27] MEDS ORDERED: *HR* Dextrose 50 % in Water (Vial) 50 ML VIAL IVP PRN (13:36)
[2020-08-27] MEDS ORDERED: Acetaminophen 325 MG TABLET PO PRN (13:36)
[2020-08-27] MEDS ORDERED: *HR* HYDROcodone/Acet 5/325 mg TABLET PO PRN (13:36)
[2020-08-27] MEDS: *HR* OxyCODONE Immed Rel 5 MG TABLET PO PRN (19:42)
[2020-08-27] MEDS: Gabapentin 300 MG CAPSULE PO SCH (20:13)
[2020-08-28] MEDS: Vancomycin 1,250 MG/262.5 ML IV.SOLN IVPB SCH ×2 (01:03→18:50)
[2020-08-28] MEDS: *HR* Heparin 5,000 UNIT/ML VIAL SQ SCH ×2 (05:10→18:49)
[2020-08-28 06:58] LABS: Basophils % 0.4 %; Eosinophils # 0.3 K/mcL (0.0-0.6); Eosinophils % 2.3 %; Hematocrit 35.9 % (37.5-50.1); Hemoglobin 11.6 g/dL (12.9-16.9); Immature Granulocytes % 0.5 % (0-4); Lymphocytes # 1.3 K/mcL (0.6-4.6); Lymphocytes % 11.4 %; Mean Corpuscular HGB Conc 32.3 g/dL (31.6-35.5); Mean Corpuscular Hemoglobin 29.1 pg (28.0-33.3); Mean Corpuscular Volume 90.2 fL (83.0-100.0); Mean Platelet Volume 9.1 fL (9.4-12.4); Monocytes # 0.9 K/mcL (0.0-1.3); Monocytes % 8.1 %; Neutrophils # 8.6 K/mcL (1.6-8.9); Platelet Count 382 K/mcL (140-400); Red Blood Count 3.98 M/mcL (4.19-5.50); Red Cell Distribution Width 12.7 % (11.5-14.5); Segmented Neutrophils % 77.3 %; White Blood Count 11.1 K/mcL (4.3-11.1)
[2020-08-28 07:18] LABS: BUN/Creatinine Ratio 13 (6-26); Blood Urea Nitrogen 13 mg/dL (8-23); Calcium 8.5 mg/dL (8.6-10.3); Carbon Dioxide 30 mEq/L (23-29); Chloride 106 mEq/L (98-107); Glucose 105 mg/dL (70-105); Osmolality,Calculated 294 (280-300); Potassium 3.5 mEq/L (3.5-5.1); Sodium 142 mEq/L (136-145); eGFR For African Americans > 60 (> 60); eGFR For Non-African Americans > 60 (> 60)
[2020-08-28] MEDS: Insulin LISPRO 300 UNITS/3 ML VIAL SUBQ SCH ×4 (07:30→20:26)
[2020-08-28] MEDS: metroNIDAZOLE 500 MG TABLET PO SCH (11:21)
[2020-08-28] MEDS: Lactobacillus 1 EACH CAP.SPRINK PO SCH ×2 (11:21→20:25)
[2020-08-28] MEDS: Sennosides/Docusate Sodium TABLET PO SCH ×2 (11:21→20:25)
[2020-08-28] MEDS: Magnesium Oxide 400 MG TABLET PO SCH (11:22)
[2020-08-28] MEDS: Aspirin Enteric Coated 81 MG Tablet PO SCH (11:22)
[2020-08-28] MEDS: lisinopriL 5 MG TABLET PO SCH (11:24)
[2020-08-28] MEDS: polyethylene glycoL 3350 17 GM POWD.PACK PO SCH (11:24)
[2020-08-28] MEDS: Insulin DETEMIR 100 UNIT/ML X5UNITS SUBQ SCH ×2 (11:24→20:25)
[2020-08-28] MEDS: cefTRIAXone 2,000 MG in 0.9 % Sodium Chloride Mini Bag 100 ML IVPB SCH (11:24)
[2020-08-28] MEDS ORDERED: Lidocaine -MPF 1% 5 ML AMPUL INFILT ONE (12:12)
[2020-08-28] MEDS ORDERED: *HR* Heparin 5,000 UNIT/ML VIAL ONE (18:49)
[2020-08-28] MEDS: *HR* OxyCODONE Immed Rel 5 MG TABLET PO PRN (20:25)
[2020-08-28] MEDS: Gabapentin 300 MG CAPSULE PO SCH (20:25)
[2020-08-29] MEDS: Vancomycin 1,250 MG/262.5 ML IV.SOLN IVPB SCH ×2 (01:14→15:03)
[2020-08-29 02:21] LABS: Basophils # 0.1 K/mcL (0.0-0.2); Basophils % 0.4 %; Eosinophils # 0.2 K/mcL (0.0-0.6); Eosinophils % 1.4 %; Hematocrit 35.8 % (37.5-50.1); Hemoglobin 11.4 g/dL (12.9-16.9); Immature Granulocytes % 0.4 % (0-4); Lymphocytes # 1.2 K/mcL (0.6-4.6); Lymphocytes % 10.2 %; Mean Corpuscular HGB Conc 31.8 g/dL (31.6-35.5); Mean Corpuscular Hemoglobin 28.4 pg (28.0-33.3); Mean Corpuscular Volume 89.1 fL (83.0-100.0); Monocytes # 1.1 K/mcL (0.0-1.3); Monocytes % 9.3 %; Neutrophils # 9.2 K/mcL (1.6-8.9); Platelet Count 403 K/mcL (140-400); Red Blood Count 4.02 M/mcL (4.19-5.50); Red Cell Distribution Width 12.8 % (11.5-14.5); Segmented Neutrophils % 78.3 %; White Blood Count 11.7 K/mcL (4.3-11.1)
[2020-08-29 02:40] LABS: BUN/Creatinine Ratio 12 (6-26); Blood Urea Nitrogen 13 mg/dL (8-23); Calcium 8.5 mg/dL (8.6-10.3); Carbon Dioxide 31 mEq/L (23-29); Chloride 104 mEq/L (98-107); Glucose 77 mg/dL (70-105); Osmolality,Calculated 295 (280-300); Potassium 3.5 mEq/L (3.5-5.1); Sodium 143 mEq/L (136-145); eGFR For African Americans > 60 (> 60); eGFR For Non-African Americans > 60 (> 60)
[2020-08-29] MEDS: *HR* Heparin 5,000 UNIT/ML VIAL SQ SCH ×2 (05:34→16:45)
[2020-08-29] MEDS: Insulin LISPRO 300 UNITS/3 ML VIAL SUBQ SCH ×4 (08:05→20:46)
[2020-08-29] MEDS: Sennosides/Docusate Sodium TABLET PO SCH ×2 (08:24→20:46)
[2020-08-29] MEDS: Lactobacillus 1 EACH CAP.SPRINK PO SCH ×2 (08:24→20:46)
[2020-08-29] MEDS: lisinopriL 5 MG TABLET PO SCH (08:24)
[2020-08-29] MEDS: cefTRIAXone 2,000 MG in 0.9 % Sodium Chloride Mini Bag 100 ML IVPB SCH (08:24)
[2020-08-29] MEDS: polyethylene glycoL 3350 17 GM POWD.PACK PO SCH (08:25)
[2020-08-29] MEDS: Aspirin Enteric Coated 81 MG Tablet PO SCH (08:25)
[2020-08-29] MEDS: Magnesium Oxide 400 MG TABLET PO SCH (08:25)
[2020-08-29] MEDS: Insulin DETEMIR 100 UNIT/ML X5UNITS SUBQ SCH ×2 (12:05→20:46)
[2020-08-29] MEDS: Gabapentin 300 MG CAPSULE PO SCH (20:46)
[2020-08-29] MEDS: *HR* OxyCODONE Immed Rel 5 MG TABLET PO PRN (20:48)
[2020-08-30] MEDS: Vancomycin 1,250 MG/262.5 ML IV.SOLN IVPB SCH ×2 (02:02→14:54)
[2020-08-30] MEDS: cefTRIAXone 2,000 MG in 0.9 % Sodium Chloride Mini Bag 100 ML IVPB SCH (05:12)
[2020-08-30] MEDS: *HR* Heparin 5,000 UNIT/ML VIAL SQ SCH ×2 (05:12→16:32)
[2020-08-30] MEDS: Insulin LISPRO 300 UNITS/3 ML VIAL SUBQ SCH ×4 (06:45→20:55)
[2020-08-30] MEDS: lisinopriL 5 MG TABLET PO SCH (08:13)
[2020-08-30] MEDS: Aspirin Enteric Coated 81 MG Tablet PO SCH (08:13)
[2020-08-30] MEDS: Lactobacillus 1 EACH CAP.SPRINK PO SCH ×2 (08:13→20:54)
[2020-08-30] MEDS: Magnesium Oxide 400 MG TABLET PO SCH (08:13)
[2020-08-30] MEDS: Sennosides/Docusate Sodium TABLET PO SCH ×2 (08:14→20:54)
[2020-08-30] MEDS: Insulin DETEMIR 100 UNIT/ML X5UNITS SUBQ SCH ×2 (08:14→20:55)
[2020-08-30] MEDS: polyethylene glycoL 3350 17 GM POWD.PACK PO SCH (08:14)
[2020-08-30 09:08] LABS: Basophils # 0.1 K/mcL (0.0-0.2); Basophils % 0.5 %; Eosinophils # 0.3 K/mcL (0.0-0.6); Eosinophils % 3.1 %; Hematocrit 35.7 % (37.5-50.1); Hemoglobin 11.4 g/dL (12.9-16.9); Immature Granulocytes % 0.4 % (0-4); Lymphocytes # 1.7 K/mcL (0.6-4.6); Lymphocytes % 15.9 %; Mean Corpuscular HGB Conc 31.9 g/dL (31.6-35.5); Mean Corpuscular Hemoglobin 28.5 pg (28.0-33.3); Mean Corpuscular Volume 89.3 fL (83.0-100.0); Mean Platelet Volume 9.1 fL (9.4-12.4); Monocytes # 1.1 K/mcL (0.0-1.3); Monocytes % 10.5 %; Neutrophils # 7.3 K/mcL (1.6-8.9); Platelet Count 375 K/mcL (140-400); Segmented Neutrophils % 69.6 %; White Blood Count 10.5 K/mcL (4.3-11.1)
[2020-08-30 09:18] LABS: BUN/Creatinine Ratio 14 (6-26); Blood Urea Nitrogen 15 mg/dL (8-23); Calcium 8.8 mg/dL (8.6-10.3); Carbon Dioxide 30 mEq/L (23-29); Chloride 103 mEq/L (98-107); Glucose 86 mg/dL (70-105); Osmolality,Calculated 292 (280-300); Potassium 3.6 mEq/L (3.5-5.1); Sodium 141 mEq/L (136-145); eGFR For African Americans > 60 (> 60); eGFR For Non-African Americans > 60 (> 60)
[2020-08-30] MEDS: *HR* OxyCODONE Immed Rel 5 MG TABLET PO PRN ×2 (13:09→20:54)
[2020-08-30] MEDS: Gabapentin 300 MG CAPSULE PO SCH (20:54)
[2020-08-31] MEDS: Vancomycin 1,250 MG/262.5 ML IV.SOLN IVPB SCH (02:36)
[2020-08-31 02:51] LABS: Basophils # 0.1 K/mcL (0.0-0.2); Basophils % 0.6 %; Eosinophils # 0.3 K/mcL (0.0-0.6); Eosinophils % 3.5 %; Hemoglobin 11.2 g/dL (12.9-16.9); Immature Granulocytes % 0.3 % (0-4); Lymphocytes # 1.7 K/mcL (0.6-4.6); Lymphocytes % 19.8 %; Mean Corpuscular Hemoglobin 29.3 pg (28.0-33.3); Mean Corpuscular Volume 91.6 fL (83.0-100.0); Mean Platelet Volume 9.1 fL (9.4-12.4); Monocytes # 0.8 K/mcL (0.0-1.3); Monocytes % 9.3 %; Neutrophils # 5.8 K/mcL (1.6-8.9); Platelet Count 355 K/mcL (140-400); Red Blood Count 3.82 M/mcL (4.19-5.50); Red Cell Distribution Width 12.8 % (11.5-14.5); Segmented Neutrophils % 66.5 %; White Blood Count 8.7 K/mcL (4.3-11.1)
[2020-08-31 03:07] LABS: BUN/Creatinine Ratio 13 (6-26); Blood Urea Nitrogen 15 mg/dL (8-23); Calcium 8.6 mg/dL (8.6-10.3); Carbon Dioxide 31 mEq/L (23-29); Chloride 103 mEq/L (98-107); Glucose 225 mg/dL (70-105); Osmolality,Calculated 296 (280-300); Sodium 139 mEq/L (136-145); eGFR For African Americans > 60 (> 60); eGFR For Non-African Americans > 60 (> 60)
[2020-08-31] MEDS: *HR* Heparin 5,000 UNIT/ML VIAL SQ SCH ×2 (05:25→16:42)
[2020-08-31] MEDS: cefTRIAXone 2,000 MG in 0.9 % Sodium Chloride Mini Bag 100 ML IVPB SCH (05:25)
[2020-08-31] MEDS: *HR* OxyCODONE Immed Rel 5 MG TABLET PO PRN ×2 (08:58→20:27)
[2020-08-31] MEDS: lisinopriL 5 MG TABLET PO SCH (08:59)
[2020-08-31] MEDS: Insulin LISPRO 300 UNITS/3 ML VIAL SUBQ SCH ×4 (08:59→20:21)
[2020-08-31] MEDS: Magnesium Oxide 400 MG TABLET PO SCH (08:59)
[2020-08-31] MEDS: Aspirin Enteric Coated 81 MG Tablet PO SCH (08:59)
[2020-08-31] MEDS: polyethylene glycoL 3350 17 GM POWD.PACK PO SCH (08:59)
[2020-08-31] MEDS: Lactobacillus 1 EACH CAP.SPRINK PO SCH ×2 (08:59→20:20)
[2020-08-31] MEDS: Insulin DETEMIR 100 UNIT/ML X5UNITS SUBQ SCH ×2 (08:59→20:21)
[2020-08-31] MEDS: Sennosides/Docusate Sodium TABLET PO SCH ×2 (10:11→20:20)
[2020-08-31] MEDS: Gabapentin 300 MG CAPSULE PO SCH (20:20)
[2020-09-01 02:36] LABS: BUN/Creatinine Ratio 15 (6-26); Blood Urea Nitrogen 19 mg/dL (8-23); Calcium 8.7 mg/dL (8.6-10.3); Carbon Dioxide 30 mEq/L (23-29); Chloride 104 mEq/L (98-107); Glucose 216 mg/dL (70-105); Osmolality,Calculated 301 (280-300); Potassium 4.3 mEq/L (3.5-5.1); Sodium 141 mEq/L (136-145); eGFR For African Americans > 60 (> 60); eGFR For Non-African Americans 55 (> 60)
[2020-09-01] MEDS: cefTRIAXone 2,000 MG in 0.9 % Sodium Chloride Mini Bag 100 ML IVPB SCH (05:36)
[2020-09-01] MEDS: *HR* Heparin 5,000 UNIT/ML VIAL SQ SCH ×2 (05:36→18:06)
[2020-09-01] MEDS: Insulin LISPRO 300 UNITS/3 ML VIAL SUBQ SCH ×4 (09:08→22:21)
[2020-09-01] MEDS: Sennosides/Docusate Sodium TABLET PO SCH ×2 (09:08→22:16)
[2020-09-01] MEDS: Aspirin Enteric Coated 81 MG Tablet PO SCH (09:08)
[2020-09-01] MEDS: Magnesium Oxide 400 MG TABLET PO SCH (09:08)
[2020-09-01] MEDS: lisinopriL 5 MG TABLET PO SCH (09:08)
[2020-09-01] MEDS: Lactobacillus 1 EACH CAP.SPRINK PO SCH ×2 (09:08→22:15)
[2020-09-01] MEDS: polyethylene glycoL 3350 17 GM POWD.PACK PO SCH (09:10)
[2020-09-01] MEDS: Insulin DETEMIR 100 UNIT/ML X5UNITS SUBQ SCH ×2 (09:14→22:16)
[2020-09-01 10:36] LABS: BUN/Creatinine Ratio 16 (6-26); Blood Urea Nitrogen 20 mg/dL (8-23); Calcium 8.7 mg/dL (8.6-10.3); Carbon Dioxide 29 mEq/L (23-29); Chloride 101 mEq/L (98-107); Glucose 267 mg/dL (70-105); Osmolality,Calculated 298 (280-300); Sodium 138 mEq/L (136-145); eGFR For African Americans > 60 (> 60); eGFR For Non-African Americans 58 (> 60)
[2020-09-01] MEDS: *HR* OxyCODONE Immed Rel 5 MG TABLET PO PRN ×2 (11:50→22:15)
[2020-09-01] MEDS: Gabapentin 300 MG CAPSULE PO SCH (22:15)
[2020-09-02 04:06] LABS: Hematocrit 35.4 % (37.5-50.1); Hemoglobin 11.1 g/dL (12.9-16.9); Mean Corpuscular HGB Conc 31.4 g/dL (31.6-35.5); Mean Corpuscular Hemoglobin 28.1 pg (28.0-33.3); Mean Corpuscular Volume 89.6 fL (83.0-100.0); Mean Platelet Volume 9.4 fL (9.4-12.4); Platelet Count 340 K/mcL (140-400); Red Blood Count 3.95 M/mcL (4.19-5.50); Red Cell Distribution Width 12.9 % (11.5-14.5); White Blood Count 9.2 K/mcL (4.3-11.1)
[2020-09-02 04:25] LABS: BUN/Creatinine Ratio 16 (6-26); Blood Urea Nitrogen 18 mg/dL (8-23); Calcium 8.7 mg/dL (8.6-10.3); Carbon Dioxide 31 mEq/L (23-29); Chloride 104 mEq/L (98-107); Glucose 154 mg/dL (70-105); Osmolality,Calculated 297 (280-300); Potassium 4.2 mEq/L (3.5-5.1); Sodium 141 mEq/L (136-145); eGFR For African Americans > 60 (> 60); eGFR For Non-African Americans > 60 (> 60)
[2020-09-02] MEDS: cefTRIAXone 2,000 MG in 0.9 % Sodium Chloride Mini Bag 100 ML IVPB SCH (06:35)
[2020-09-02] MEDS: *HR* Heparin 5,000 UNIT/ML VIAL SQ SCH (06:36)
[2020-09-02 06:48] VITALS: BP 103/63
[2020-09-02] MEDS: Insulin LISPRO 300 UNITS/3 ML VIAL SUBQ SCH (07:38)
[2020-09-02] MEDS ORDERED: Aspirin Enteric Coated 325 MG Tablet PO SCH (09:00)
[2020-09-02] MEDS: Sennosides/Docusate Sodium TABLET PO SCH (09:46)
[2020-09-02] MEDS: Lactobacillus 1 EACH CAP.SPRINK PO SCH (09:47)
[2020-09-02] MEDS: lisinopriL 5 MG TABLET PO SCH (09:47)
[2020-09-02] MEDS: Magnesium Oxide 400 MG TABLET PO SCH (09:47)
[2020-09-02] MEDS: Insulin DETEMIR 100 UNIT/ML X5UNITS SUBQ SCH (09:48)
[2020-09-02] MEDS: polyethylene glycoL 3350 17 GM POWD.PACK PO SCH (10:28)
== END 2020-09-02 11:05 | disposition home health service (06) | DRG 617 ==
LOC: EMEROOARM 16:35 → 3BNU 16:35 → SUATTDRO 19:06 → 3BNU 20:09 → SUATTDRO 08-17 13:53 → 3BNU 08-18 21:01
PROVIDERS: ADMIT Internal Medicine; ATTEND Internal Medicine

== ENCOUNTER 2020-09-13 15:10 | Observation (INO) ==
[2020-09-13] MEDS ORDERED: 0.9 % Sodium Chloride 1,000 ML IVC ONE ×2 (15:17→18:20)
[2020-09-13] MEDS ORDERED: Ondansetron 4 MG/2 ML VIAL IVP ONE ×2 (15:17→16:59)
[2020-09-13] MEDS ORDERED: Pantoprazole 40 MG VIAL IVP ONE (15:19)
[2020-09-13 16:28] LABS: Basophils # 0.1 K/mcL (0.0-0.2); Basophils % 0.5 %; Eosinophils # 0.1 K/mcL (0.0-0.6); Eosinophils % 1.4 %; Hematocrit 42.1 % (37.5-50.1); Hemoglobin 13.9 g/dL (12.9-16.9); Immature Granulocytes % 0.2 % (0-4); Lymphocytes # 0.9 K/mcL (0.6-4.6); Mean Corpuscular Hemoglobin 28.8 pg (28.0-33.3); Mean Corpuscular Volume 87.3 fL (83.0-100.0); Mean Platelet Volume 9.7 fL (9.4-12.4); Monocytes # 0.8 K/mcL (0.0-1.3); Monocytes % 8.3 %; Neutrophils # 7.6 K/mcL (1.6-8.9); Platelet Count 271 K/mcL (140-400); Red Blood Count 4.82 M/mcL (4.19-5.50); Red Cell Distribution Width 12.9 % (11.5-14.5); Segmented Neutrophils % 80.6 %; White Blood Count 9.4 K/mcL (4.3-11.1)
[2020-09-13 16:45] LABS: Alanine Aminotransferase 17 Units/L (7-52); Albumin 3.7 g/dL (3.5-5.7); Albumin/Globulin Ratio 1.1 (1.1-2.2); Alkaline Phosphatase 44 Units/L (34-104); Aspartate Amino Transferase 12 Units/L (13-39); BUN/Creatinine Ratio 11 (6-26); Bilirubin,Total 0.5 mg/dL (0.3-1.0); Blood Urea Nitrogen 13 mg/dL (8-23); Calcium 9.3 mg/dL (8.6-10.3); Carbon Dioxide 27 mEq/L (23-29); Chloride 98 mEq/L (98-107); Globulin 3.5 g/dL (2.4-3.5); Glucose 210 mg/dL (70-105); Lipase 9 Units/L (11-82); Osmolality,Calculated 294 (280-300); Potassium 3.8 mEq/L (3.5-5.1); Sodium 139 mEq/L (136-145); Total Protein 7.2 g/dL (6.4-8.9); eGFR For African Americans > 60 (> 60); eGFR For Non-African Americans > 60 (> 60)
[2020-09-13] MEDS ORDERED: *HR* Promethazine 25 MG/ML VIAL IVPB ONE (16:46)
[2020-09-13] MEDS ORDERED: *HR* Promethazine 25 MG/ML VIAL IM ONE (17:00)
[2020-09-13 19:21] LABS: Bacteria,Urine Few per hpf (None-Few); Bilirubin,Urine Negative (Negative); Blood,Urine Moderate (Negative); Budding Yeast,Urine Many per hpf (None Seen); Clarity,Urine Turbid (Clear); Color,Urine Light-Yellow (Yellow); Glucose,Urine (UA) 150 mg/dL (Normal); Ketones,Urine 10 mg/dL (Negative); Leukocyte Esterase,Urine Trace (Negative); Nitrite,Urine Negative (Negative); Protein,Urine Trace mg/dL (Neg-Trace); Specific Gravity,Urine 1.015 (1.010-1.025); Squamous Epithelial Cell,Urine Few per hpf (None-Few); Urobilinogen,Urine Normal (Normal)
[2020-09-13] MEDS ORDERED: levoFLOXacin 750 MG/150 ML 750 MG/150 ML BAG IVPB ONE (20:40)
[2020-09-13] MEDS ORDERED: Clindamycin 900 MG/50 ML 900 MG/50 ML IV.SOLN IVPB ONE (20:46)
[2020-09-13] MEDS ORDERED: Ampicillin/Sulbactam 3,000 MG in 0.9 % Sodium Chloride Mini Bag 100 ML IVPB STA (20:46)
[2020-09-13] MEDS ORDERED: *HR* Dextrose 50 % in Water (Vial) 50 ML VIAL IVP PRN (20:58)
[2020-09-13] MEDS ORDERED: Dextrose Gel 15 GM/37.5 ML TUBE PO PRN ×2 (20:58)
[2020-09-13] MEDS ORDERED: D5% in Water 1,000 ML IVC PRN (20:58)
[2020-09-13] MEDS ORDERED: *HR* HYDROcodone/Acet 5/325 mg TABLET PO PRN (21:00)
[2020-09-13] MEDS ORDERED: Naloxone 0.4 MG/ML INJ IVP PRN (21:00)
[2020-09-13] MEDS ORDERED: *HR* OxyCODONE Immed Rel 5 MG TABLET PO PRN (21:00)
[2020-09-13] MEDS ORDERED: Acetaminophen 325 MG TABLET PO PRN (21:00)
[2020-09-13] MEDS: Insulin LISPRO 300 UNITS/3 ML VIAL SUBQ SCH (22:42)
[2020-09-13] MEDS: 0.9 % Sodium Chloride 1,000 ML IVC SCH (22:47)
[2020-09-13] MEDS: Insulin DETEMIR 100 UNIT/ML X5UNITS SUBQ SCH (22:47)
[2020-09-14] MEDS: Ondansetron 4 MG/2 ML VIAL IVP PRN (01:32)
[2020-09-14 01:45] LABS: Basophils # 0.1 K/mcL (0.0-0.2); Basophils % 0.6 %; Eosinophils # 0.1 K/mcL (0.0-0.6); Eosinophils % 1.5 %; Hematocrit 38.5 % (37.5-50.1); Hemoglobin 12.7 g/dL (12.9-16.9); Immature Granulocytes % 0.1 % (0-4); Lymphocytes # 1.3 K/mcL (0.6-4.6); Lymphocytes % 16.2 %; Mean Corpuscular Volume 87.9 fL (83.0-100.0); Mean Platelet Volume 9.6 fL (9.4-12.4); Monocytes # 0.8 K/mcL (0.0-1.3); Monocytes % 9.9 %; Neutrophils # 5.8 K/mcL (1.6-8.9); Platelet Count 239 K/mcL (140-400); Red Blood Count 4.38 M/mcL (4.19-5.50); Segmented Neutrophils % 71.7 %; White Blood Count 8.1 K/mcL (4.3-11.1)
[2020-09-14 02:03] LABS: BUN/Creatinine Ratio 10 (6-26); Blood Urea Nitrogen 12 mg/dL (8-23); Calcium 8.7 mg/dL (8.6-10.3); Carbon Dioxide 28 mEq/L (23-29); Chloride 104 mEq/L (98-107); Glucose 156 mg/dL (70-105); Osmolality,Calculated 295 (280-300); Potassium 3.3 mEq/L (3.5-5.1); Sodium 141 mEq/L (136-145); eGFR For African Americans > 60 (> 60); eGFR For Non-African Americans > 60 (> 60)
[2020-09-14] MEDS: Ampicillin/Sulbactam 3,000 MG in 0.9 % Sodium Chloride Mini Bag 100 ML IVPB SCH ×4 (02:20→20:06)
[2020-09-14] MEDS: 0.9 % Sodium Chloride 1,000 ML IVC SCH (03:58)
[2020-09-14] MEDS: *HR* Heparin 5,000 UNIT/ML VIAL SQ SCH ×2 (05:37→17:29)
[2020-09-14] MEDS: Clindamycin 600 MG/50 ML 600 MG/50 ML IV.SOLN IVPB SCH ×3 (05:38→21:21)
[2020-09-14] MEDS: Insulin LISPRO 300 UNITS/3 ML VIAL SUBQ SCH ×4 (08:02→21:18)
[2020-09-14] MEDS: Pantoprazole 40 MG VIAL IVP SCH (08:04)
[2020-09-14] MEDS: Insulin DETEMIR 100 UNIT/ML X5UNITS SUBQ SCH ×2 (08:04→20:06)
[2020-09-14] MEDS ORDERED: Potassium Chloride Elixir 20 MEQ/15 ML UDC PO ONE (11:31)
[2020-09-15] MEDS: Ampicillin/Sulbactam 3,000 MG in 0.9 % Sodium Chloride Mini Bag 100 ML IVPB SCH ×2 (02:30→08:45)
[2020-09-15] MEDS: *HR* Heparin 5,000 UNIT/ML VIAL SQ SCH (05:10)
[2020-09-15] MEDS: Clindamycin 600 MG/50 ML 600 MG/50 ML IV.SOLN IVPB SCH ×2 (05:10→14:11)
[2020-09-15] MEDS: Insulin LISPRO 300 UNITS/3 ML VIAL SUBQ SCH ×2 (07:46→11:58)
[2020-09-15] MEDS: Ondansetron 4 MG/2 ML VIAL IVP PRN (08:03)
[2020-09-15] MEDS: Insulin DETEMIR 100 UNIT/ML X5UNITS SUBQ SCH (08:06)
[2020-09-15] MEDS: Pantoprazole 40 MG VIAL IVP SCH (08:45)
[2020-09-15] MEDS ORDERED: Lactobacillus 1 EACH CAP.SPRINK PO SCH (09:00)
[2020-09-15] MEDS ORDERED: lisinopriL 5 MG TABLET PO SCH (09:00)
[2020-09-15] MEDS ORDERED: Aspirin Enteric Coated 325 MG Tablet PO SCH (09:00)
[2020-09-15 13:54] VITALS: BP 124/72
[2020-09-15] MEDS ORDERED: Doxycycline 100 MG CAPSULE PO SCH (16:10)
[2020-09-15] MEDS ORDERED: cephALEXin 500 MG CAPSULE PO SCH (16:15)
[2020-09-15] MEDS ORDERED: Nystatin SUSP 5 ML UD.LIQ PO SCH (17:00)
[2020-09-15] MEDS ORDERED: Gabapentin 300 MG CAPSULE PO SCH (21:00)
[2020-09-15] MEDS ORDERED: Insulin DETEMIR 100 UNIT/ML X5UNITS SUBQ SCH (21:00)
== END 2020-09-15 17:17 | disposition home health service (06) ==
LOC: 3BNU 15:10 → EMEROOARM 15:10 → SUATTDRO 20:53 → 3BNU 22:22
PROVIDERS: ADMIT Family Medicine; ATTEND Internal Medicine

== ENCOUNTER 2020-12-20 20:56 | Observation (INO) ==
[2020-12-20 22:17] LABS: Basophils % 0.3 %; Eosinophils # 0.1 K/mcL (0.0-0.6); Hematocrit 39.5 % (37.5-50.1); Hemoglobin 13.2 g/dL (12.9-16.9); Immature Granulocytes % 0.4 % (0-4); Lymphocytes # 1.6 K/mcL (0.6-4.6); Mean Corpuscular HGB Conc 33.4 g/dL (31.6-35.5); Mean Corpuscular Hemoglobin 29.3 pg (28.0-33.3); Mean Corpuscular Volume 87.8 fL (83.0-100.0); Mean Platelet Volume 9.5 fL (9.4-12.4); Monocytes % 7.8 %; Neutrophils # 10.1 K/mcL (1.6-8.9); Platelet Count 342 K/mcL (140-400); Red Cell Distribution Width 13.5 % (11.5-14.5); Segmented Neutrophils % 78.5 %; White Blood Count 12.9 K/mcL (4.3-11.1)
[2020-12-20 22:39] LABS: Alanine Aminotransferase 29 Units/L (7-52); Albumin 4.1 g/dL (3.5-5.7); Albumin/Globulin Ratio 1.2 (1.1-2.2); Alkaline Phosphatase 41 Units/L (34-104); Aspartate Amino Transferase 19 Units/L (13-39); BUN/Creatinine Ratio 20 (6-26); Bilirubin,Indirect 0.3 mg/dL (0.0-1.0); Bilirubin,Total 0.3 mg/dL (0.3-1.0); Blood Urea Nitrogen 30 mg/dL (8-23); Calcium 9.6 mg/dL (8.6-10.3); Carbon Dioxide 24 mEq/L (23-29); Chloride 100 mEq/L (98-107); Creatine Kinase 63 Units/L (30-223); Globulin 3.3 g/dL (2.4-3.5); Glucose 224 mg/dL (70-105); Magnesium 1.9 mg/dL (1.6-2.6); Osmolality,Calculated 293 (280-300); Phosphorous 3.6 mg/dL (2.7-4.5); Potassium 5.4 mEq/L (3.5-5.1); Sodium 135 mEq/L (136-145); Total Protein 7.4 g/dL (6.4-8.9); Troponin I < 0.03 ng/mL (< 0.04); eGFR For African Americans 59 (> 60); eGFR For Non-African Americans 48 (> 60)
[2020-12-20 22:45] LABS: Amorphous Sediment,Urine Few per hpf (None-Few); Bilirubin,Urine Negative (Negative); Blood,Urine Negative (Negative); Clarity,Urine Clear (Clear); Color,Urine Light-Yellow (Yellow); Glucose,Urine (UA) >=1000 mg/dL (Normal); Hyaline Casts,Urine Few per lpf (None Seen); Ketones,Urine Negative (Negative); Leukocyte Esterase,Urine Negative (Negative); Mucus,Urine Few per lpf (None-Few); Nitrite,Urine Negative (Negative); PH,Urine 5.5 pH Units (5.0-8.0); Protein,Urine Trace mg/dL (Neg-Trace); RBC,Urine 0-3 per hpf (0-3); Specific Gravity,Urine 1.019 (1.010-1.025); Sperm,Urine Present per hpf (None Seen); Squamous Epithelial Cell,Urine Few per hpf (None-Few); Urobilinogen,Urine Normal (Normal)
[2020-12-20 22:53] LABS: Thyroid Stimulating Hormone 1.899 mcIU/mL (0.340-5.600)
[2020-12-21] MEDS ORDERED: 0.9 % Sodium Chloride 1,000 ML IVC ONE ×2 (00:08→06:43)
[2020-12-21] MEDS ORDERED: Melatonin 3 MG TABLET PO PRN (02:41)
[2020-12-21] MEDS ORDERED: Ondansetron 4 MG/2 ML VIAL IVP PRN (02:41)
[2020-12-21] MEDS ORDERED: Acetaminophen 325 MG TABLET PO PRN (02:41)
[2020-12-21] MEDS ORDERED: Naloxone 0.4 MG/ML INJ IVP PRN (02:41)
[2020-12-21] MEDS ORDERED: D5% in Water 1,000 ML IVC PRN (02:45)
[2020-12-21] MEDS ORDERED: *HR* Dextrose 50 % in Water (Vial) 50 ML VIAL IVP PRN (02:45)
[2020-12-21] MEDS ORDERED: Dextrose Gel 15 GM/37.5 ML TUBE PO PRN ×2 (02:45)
[2020-12-21 03:11] LABS: Basophils # 0.1 K/mcL (0.0-0.2); Basophils % 0.5 %; Eosinophils # 0.1 K/mcL (0.0-0.6); Eosinophils % 1.3 %; Hematocrit 35.8 % (37.5-50.1); Hemoglobin 11.3 g/dL (12.9-16.9); Immature Granulocytes % 0.2 % (0-4); Lymphocytes # 1.7 K/mcL (0.6-4.6); Lymphocytes % 16.7 %; Mean Corpuscular HGB Conc 31.6 g/dL (31.6-35.5); Mean Corpuscular Hemoglobin 28.5 pg (28.0-33.3); Mean Corpuscular Volume 90.4 fL (83.0-100.0); Mean Platelet Volume 9.5 fL (9.4-12.4); Monocytes # 0.9 K/mcL (0.0-1.3); Monocytes % 9.4 %; Neutrophils # 7.1 K/mcL (1.6-8.9); Platelet Count 318 K/mcL (140-400); Red Blood Count 3.96 M/mcL (4.19-5.50); Red Cell Distribution Width 13.4 % (11.5-14.5); Segmented Neutrophils % 71.9 %; White Blood Count 9.9 K/mcL (4.3-11.1)
[2020-12-21 03:40] LABS: BUN/Creatinine Ratio 21 (6-26); Blood Urea Nitrogen 29 mg/dL (8-23); Carbon Dioxide 22 mEq/L (23-29); Chloride 105 mEq/L (98-107); Glucose 185 mg/dL (70-105); Osmolality,Calculated 295 (280-300); Potassium 4.7 mEq/L (3.5-5.1); Sodium 137 mEq/L (136-145); eGFR For African Americans > 60 (> 60); eGFR For Non-African Americans 52 (> 60)
[2020-12-21] MEDS: Insulin LISPRO 300 UNITS/3 ML VIAL SUBQ SCH ×3 (08:18→16:47)
[2020-12-21] MEDS ORDERED: Insulin LISPRO 300 UNITS/3 ML VIAL SUBQ SCH (21:00)
[2020-12-22 06:12] LABS: Estimated Average Glucose 306 mg/dl; Hemoglobin A1C 12.3 %
[2020-12-22 06:38] LABS: BUN/Creatinine Ratio 18 (6-26); Blood Urea Nitrogen 25 mg/dL (8-23); Calcium 9.2 mg/dL (8.6-10.3); Carbon Dioxide 24 mEq/L (23-29); Chloride 103 mEq/L (98-107); Glucose 249 mg/dL (70-105); Osmolality,Calculated 295 (280-300); Potassium 4.5 mEq/L (3.5-5.1); Sodium 136 mEq/L (136-145); eGFR For African Americans > 60 (> 60); eGFR For Non-African Americans 52 (> 60)
[2020-12-22] MEDS: Insulin LISPRO 300 UNITS/3 ML VIAL SUBQ SCH ×2 (09:05→11:35)
[2020-12-22 14:25] VITALS: BP 101/64
== END 2020-12-22 17:42 | disposition home or self-care (01) ==
LOC: 3BNU 20:56 → EMEROOARM 20:56 → SUATTDRO 12-21 01:09 → 3BNU 12-21 02:02
PROVIDERS: ADMIT Internal Medicine; ATTEND Registered Nurse

== ENCOUNTER 2021-03-06 00:25 | Observation (INO) ==
[2021-03-06 03:22] LABS: Basophils # 0.1 K/mcL (0.0-0.2); Basophils % 0.6 %; Eosinophils # 0.5 K/mcL (0.0-0.6); Eosinophils % 5.5 %; Hematocrit 35.1 % (37.5-50.1); Hemoglobin 10.9 g/dL (12.9-16.9); Immature Granulocytes % 0.2 % (0-4); Lymphocytes # 1.3 K/mcL (0.6-4.6); Mean Corpuscular HGB Conc 31.1 g/dL (31.6-35.5); Mean Corpuscular Hemoglobin 28.6 pg (28.0-33.3); Mean Corpuscular Volume 92.1 fL (83.0-100.0); Monocytes # 0.9 K/mcL (0.0-1.3); Monocytes % 9.8 %; Platelet Count 353 K/mcL (140-400); Red Blood Count 3.81 M/mcL (4.19-5.50); Red Cell Distribution Width 12.8 % (11.5-14.5); Segmented Neutrophils % 68.9 %; White Blood Count 8.8 K/mcL (4.3-11.1)
[2021-03-06 03:43] LABS: BUN/Creatinine Ratio 15 (6-26); Blood Urea Nitrogen 14 mg/dL (8-23); Calcium 8.6 mg/dL (8.6-10.3); Carbon Dioxide 29 mEq/L (23-29); Chloride 105 mEq/L (98-107); Glucose 187 mg/dL (70-105); Osmolality,Calculated 297 (280-300); Potassium 3.1 mEq/L (3.5-5.1); Sodium 141 mEq/L (136-145); Troponin I < 0.03 ng/mL (< 0.04); eGFR For African Americans > 60 (> 60); eGFR For Non-African Americans > 60 (> 60)
[2021-03-06] MEDS ORDERED: Potassium Chloride Elixir 20 MEQ/15 ML UDC PO ONE (04:08)
[2021-03-06] MEDS ORDERED: Azithromycin 250 MG TABLET PO ONE (04:30)
[2021-03-06] MEDS ORDERED: cefTRIAXone 1,000 MG in Water for inj. (sterile) 10 ML IVP ONE (04:30)
[2021-03-06] MEDS ORDERED: *HR* Dextrose 50 % in Water (Vial) 50 ML VIAL IVP PRN (05:34)
[2021-03-06] MEDS ORDERED: D5% in Water 1,000 ML IVC PRN (05:34)
[2021-03-06] MEDS ORDERED: Dextrose Gel 15 GM/37.5 ML TUBE PO PRN ×2 (05:34)
[2021-03-06] MEDS ORDERED: Naloxone 0.4 MG/ML INJ IVP PRN (05:37)
[2021-03-06] MEDS ORDERED: Acetaminophen 325 MG TABLET PO PRN (06:00)
[2021-03-06 07:46] LABS: Thyroid Stimulating Hormone 1.498 mcIU/mL (0.340-5.600)
[2021-03-06] MEDS: Insulin LISPRO 300 UNITS/3 ML VIAL SUBQ SCH ×3 (08:57→17:42)
[2021-03-06 12:25] LABS: Bilirubin,Urine Negative (Negative); Blood,Urine Negative (Negative); Clarity,Urine Clear (Clear); Color,Urine Light-Yellow (Yellow); Glucose,Urine (UA) 150 mg/dL (Normal); Hyaline Casts,Urine Few per lpf (None Seen); Ketones,Urine Negative (Negative); Leukocyte Esterase,Urine Negative (Negative); Mucus,Urine Few per lpf (None-Few); Nitrite,Urine Negative (Negative); Protein,Urine Trace mg/dL (Neg-Trace); RBC,Urine 0-3 per hpf (0-3); Specific Gravity,Urine 1.018 (1.010-1.025); Squamous Epithelial Cell,Urine Few per hpf (None-Few); Urobilinogen,Urine Normal (Normal)
[2021-03-06] MEDS ORDERED: Insulin LISPRO 300 UNITS/3 ML VIAL SUBQ SCH (21:00)
[2021-03-07] MEDS ORDERED: Gabapentin 300 MG CAPSULE PO PRN (07:24)
[2021-03-07 07:52] VITALS: PULSE 82
[2021-03-07] MEDS ORDERED: Aspirin Enteric Coated 325 MG Tablet PO SCH ×2 (08:00→09:00)
[2021-03-07] MEDS: Insulin LISPRO 300 UNITS/3 ML VIAL SUBQ SCH ×2 (08:13→11:38)
[2021-03-07] MEDS ORDERED: Furosemide 20 MG TABLET PO SCH (09:00)
[2021-03-07] MEDS ORDERED: Multivit/Ca/Min/Fe/FA 1 TAB TABLET PO SCH (09:00)
[2021-03-07] MEDS ORDERED: (Cyclosporine [Restasis] 1 EACH Droperette) OP SCH (09:00)
[2021-03-07 10:57] LABS: Hematocrit 34.1 % (37.5-50.1); Hemoglobin 10.4 g/dL (12.9-16.9); Mean Corpuscular HGB Conc 30.5 g/dL (31.6-35.5); Mean Corpuscular Hemoglobin 28.6 pg (28.0-33.3); Mean Corpuscular Volume 93.7 fL (83.0-100.0); Mean Platelet Volume 10.7 fL (9.4-12.4); Platelet Count 183 K/mcL (140-400); Red Blood Count 3.64 M/mcL (4.19-5.50); Red Cell Distribution Width 12.8 % (11.5-14.5); White Blood Count 9.8 K/mcL (4.3-11.1)
[2021-03-07 11:00] LABS: Prothrombin Time 11.7 Seconds (9.4-12.1)
[2021-03-07 11:03] LABS: Activated Partial Thrombo Time 24.8 Seconds (26.0-36.0)
[2021-03-07 11:10] LABS: BUN/Creatinine Ratio 11 (6-26); Blood Urea Nitrogen 11 mg/dL (8-23); Calcium 8.9 mg/dL (8.6-10.3); Carbon Dioxide 30 mEq/L (23-29); Chloride 105 mEq/L (98-107); Chol/HDL Ratio 4.4 (0-4.9); Cholesterol 148 mg/dL (< 200); Glucose 64 mg/dL (70-105); HDL Cholesterol 34 mg/dL (40-59); LDL Cholesterol,Calculated 62 mg/dL (< 100); Osmolality,Calculated 295 (280-300); Potassium 3.5 mEq/L (3.5-5.1); Sodium 144 mEq/L (136-145); Triglycerides 259 mg/dL (< 150); eGFR For African Americans > 60 (> 60); eGFR For Non-African Americans > 60 (> 60)
[2021-03-07 11:20] LABS: Estimated Average Glucose 180 mg/dl; Hemoglobin A1C 7.9 %
[2021-03-07 12:07] VITALS: BP 142/89; TEMP 98.3; O2SAT 93
== END 2021-03-07 14:50 | disposition home or self-care (01) ==
LOC: CDU 00:25 → EMEROOARM 00:25 → SUATTDRO 04:52 → CDU 05:23
PROVIDERS: ADMIT Student in an Organized Health Care Education/Training Program; ATTEND Pharmacist

== ENCOUNTER 2022-01-02 12:20 | Observation (INO) ==
[2022-01-02] MEDS ORDERED: Isovue-370 500 ML BOTTLE IVP ONE (12:31)
[2022-01-02] MEDS ORDERED: Pantoprazole 40 MG VIAL IVP ONE (12:32)
[2022-01-02] MEDS ORDERED: 0.9 % Sodium Chloride 1,000 ML IVC ONE ×2 (12:33→14:31)
[2022-01-02] MEDS ORDERED: Ondansetron 4 MG/2 ML VIAL IVP ONE (12:34)
[2022-01-02 13:00] LABS: VBG HCO3 32 mEq/L (21-27); VBG PCO2 39 mmHg (41-51); VBG PH 7.52 pH Units (7.32-7.42); VBG PO2 69 mmHg (25-50)
[2022-01-02 13:06] LABS: Basophils % 0.1 %; Hematocrit 39.9 % (37.5-50.1); Immature Granulocytes % 0.7 % (0-4); Lymphocytes # 0.7 K/mcL (0.6-4.6); Lymphocytes % 4.2 %; Mean Corpuscular HGB Conc 32.6 g/dL (31.6-35.5); Mean Corpuscular Volume 89.1 fL (83.0-100.0); Mean Platelet Volume 9.9 fL (9.4-12.4); Monocytes # 1.7 K/mcL (0.0-1.3); Monocytes % 9.7 %; Neutrophils # 14.9 K/mcL (1.6-8.9); Platelet Count 376 K/mcL (140-400); Red Blood Count 4.48 M/mcL (4.19-5.50); Red Cell Distribution Width 13.3 % (11.5-14.5); Segmented Neutrophils % 85.3 %; White Blood Count 17.5 K/mcL (4.3-11.1)
[2022-01-02 13:28] LABS: Bilirubin,Urine Negative (Negative); Blood,Urine Negative (Negative); Clarity,Urine Clear (Clear); Color,Urine Colorless (Yellow); Glucose,Urine (UA) >=1000 mg/dL (Normal); Ketones,Urine 10 mg/dL (Negative); Leukocyte Esterase,Urine Negative (Negative); Nitrite,Urine Negative (Negative); Protein,Urine Negative (Neg-Trace); RBC,Urine 0-3 per hpf (0-3); Specific Gravity,Urine 1.012 (1.010-1.025); Squamous Epithelial Cell,Urine Few per hpf (None-Few); Urobilinogen,Urine Normal (Normal); WBC,Urine 0-3 per hpf (0-3)
[2022-01-02 13:33] LABS: Albumin/Globulin Ratio 1.3 (1.1-2.2); Bilirubin,Total 0.5 mg/dL (0.3-1.0); Calcium 8.9 mg/dL (8.6-10.3); Globulin 3.2 g/dL (2.4-3.5); Magnesium 3.7 mg/dL (1.6-2.6); Total Protein 7.2 g/dL (6.4-8.9)
[2022-01-02 13:38] LABS: Influenza A PCR Negative (Negative); Influenza B PCR Negative (Negative); Resp. Syncytial Virus PCR Negative (Negative)
[2022-01-02 13:39] LABS: SARS-CoV-2 by PCR (In House) Negative (Negative)
[2022-01-02] MEDS ORDERED: Insulin Human Regular 6 UNIT in 0.9 % Sodium Chloride 10 ML IV ONE (15:09)
[2022-01-02] MEDS ORDERED: Metoclopramide 10 MG/2 ML VIAL IVP ONE (15:57)
[2022-01-02] MEDS: Pantoprazole 40 MG VIAL IVP SCH (18:36)
[2022-01-02] MEDS ORDERED: 0.9 % Sodium Chloride 1,000 ML IVC SCH ×3 (18:45→23:32)
[2022-01-02] MEDS ORDERED: Ondansetron 4 MG/2 ML VIAL IVP PRN (18:46)
[2022-01-02] MEDS ORDERED: D5% in Water 1,000 ML IVC PRN (18:47)
[2022-01-02] MEDS ORDERED: Dextrose Gel 15 GM/37.5 ML TUBE PO PRN ×2 (18:47)
[2022-01-02] MEDS ORDERED: *HR* Dextrose 50 % in Water (Syg) 50 ML SYRINGE IVP PRN (18:47)
[2022-01-02] MEDS ORDERED: Insulin DETEMIR 100 UNIT/ML X5UNITS SUBQ ONE (18:51)
[2022-01-03] MEDS: Insulin LISPRO 300 UNITS/3 ML VIAL SUBQ SCH ×2 (00:31→05:29)
[2022-01-03] MEDS: Metoclopramide 10 MG/2 ML VIAL IVP SCH ×4 (00:31→18:35)
[2022-01-03 01:01] LABS: VBG HCO3 30 mEq/L (21-27); VBG PCO2 48 mmHg (41-51); VBG PO2 94 mmHg (25-50)
[2022-01-03 01:13] LABS: Calcium 8.2 mg/dL (8.6-10.3); Potassium 3.8 mEq/L (3.5-5.1)
[2022-01-03] MEDS: Pantoprazole 40 MG VIAL IVP SCH ×2 (05:05→18:35)
[2022-01-03 05:14] LABS: Magnesium 3.6 mg/dL (1.6-2.6); Phosphorous 4.2 mg/dL (2.7-4.5)
[2022-01-03 05:37] LABS: Basophils % 0.1 %; Hematocrit 36.9 % (37.5-50.1); Hemoglobin 11.7 g/dL (12.9-16.9); Immature Granulocytes % 0.4 % (0-4); Lymphocytes # 1.1 K/mcL (0.6-4.6); Lymphocytes % 8.2 %; Mean Corpuscular HGB Conc 31.7 g/dL (31.6-35.5); Mean Corpuscular Volume 91.6 fL (83.0-100.0); Mean Platelet Volume 9.9 fL (9.4-12.4); Monocytes # 1.5 K/mcL (0.0-1.3); Neutrophils # 11.1 K/mcL (1.6-8.9); Platelet Count 336 K/mcL (140-400); Red Blood Count 4.03 M/mcL (4.19-5.50); Red Cell Distribution Width 13.6 % (11.5-14.5); Segmented Neutrophils % 80.3 %; White Blood Count 13.8 K/mcL (4.3-11.1)
[2022-01-03 05:41] LABS: Calcium 8.3 mg/dL (8.6-10.3); Potassium 3.8 mEq/L (3.5-5.1)
[2022-01-03] MEDS ORDERED: *HR* Dextrose 50 % in Water (Syg) 50 ML SYRINGE IVP PRN (07:42)
[2022-01-03] MEDS ORDERED: D5% in Water 1,000 ML IVC SCH (07:45)
[2022-01-03 09:04] LABS: Estimated Average Glucose 303 mg/dl; Hemoglobin A1C 12.2 %
[2022-01-03] MEDS ORDERED: *HR* Propofol 200 MG/20 ML VIAL IVP ONE (09:16)
[2022-01-03] MEDS ORDERED: Lidocaine -MPF 2% 2 ML VIAL ONE (09:16)
[2022-01-03] MEDS ORDERED: Ondansetron 4 MG/2 ML VIAL ONE (09:41)
[2022-01-03] MEDS ORDERED: Ondansetron 4 MG/2 ML VIAL IVP ONE (09:45)
[2022-01-03] MEDS ORDERED: 0.9 % Sodium Chloride 1,000 ML IVC SCH (09:45)
[2022-01-03] MEDS ORDERED: *HR* Labetalol 20 MG/4 ML SYRINGE IVP ONE (10:11)
[2022-01-03 16:14] LABS: Calcium 8.2 mg/dL (8.6-10.3); Potassium 3.3 mEq/L (3.5-5.1)
[2022-01-03] MEDS ORDERED: Potassium Chloride Elixir 20 MEQ/15 ML UDC PO ONE (16:49)
[2022-01-03] MEDS ORDERED: Potassium Chloride 20 MEQ in D5% in Water 1,000 ML IVC SCH (22:45)
[2022-01-04 01:40] LABS: Basophils % 0.2 %; Eosinophils % 0.2 %; Hemoglobin 10.2 g/dL (12.9-16.9); Immature Granulocytes % 0.2 % (0-4); Lymphocytes # 1.5 K/mcL (0.6-4.6); Lymphocytes % 16.2 %; Mean Corpuscular HGB Conc 30.9 g/dL (31.6-35.5); Mean Corpuscular Hemoglobin 28.6 pg (28.0-33.3); Mean Corpuscular Volume 92.4 fL (83.0-100.0); Mean Platelet Volume 9.9 fL (9.4-12.4); Monocytes # 1.1 K/mcL (0.0-1.3); Monocytes % 12.3 %; Neutrophils # 6.5 K/mcL (1.6-8.9); Platelet Count 269 K/mcL (140-400); Red Blood Count 3.57 M/mcL (4.19-5.50); Segmented Neutrophils % 70.9 %; White Blood Count 9.2 K/mcL (4.3-11.1)
[2022-01-04] MEDS: Metoclopramide 10 MG/2 ML VIAL IVP SCH ×2 (01:50→06:42)
[2022-01-04 02:09] LABS: BUN/Creatinine Ratio 26 (6-26); Blood Urea Nitrogen 34 mg/dL (8-23); Calcium 7.8 mg/dL (8.6-10.3); Carbon Dioxide 27 mEq/L (23-29); Chloride 101 mEq/L (98-107); Glucose 229 mg/dL (70-105); Magnesium 2.6 mg/dL (1.6-2.6); Osmolality,Calculated 301 (280-300); Phosphorous 2.3 mg/dL (2.7-4.5); Potassium 3.7 mEq/L (3.5-5.1); Sodium 138 mEq/L (136-145); eGFR For African Americans > 60 (> 60); eGFR For Non-African Americans 55 (> 60)
[2022-01-04] MEDS ORDERED: Calcium Gluconate 1gm/50mL 1 GM/50 ML BAG IVPB ONE (02:39)
[2022-01-04] MEDS: Pantoprazole 40 MG VIAL IVP SCH (06:42)
[2022-01-04 07:51] VITALS: O2SAT 96
[2022-01-04 11:40] VITALS: BP 178/100; PULSE 93; TEMP 98.2
== END 2022-01-04 13:10 | disposition home or self-care (01) ==
LOC: EMEROOARM 12:20 → 2NNU 12:20 → SUATTDRO 16:38 → 2NNU 18:19
PROVIDERS: ADMIT Student in an Organized Health Care Education/Training Program; ATTEND Internal Medicine

== ENCOUNTER 2022-04-29 10:08 | Inpatient (IN) ==
[2022-04-29] MEDS ORDERED: Piperacillin/Tazobactam 3.375 GM in 0.9 % Sodium Chloride Mini Bag 100 ML IVPB ONE (13:25)
[2022-04-29] MEDS ORDERED: Vancomycin 1,500 MG/265 ML IV.SOLN IVPB ONE (13:25)
[2022-04-29] MEDS ORDERED: 0.9 % Sodium Chloride 1,000 ML IVC ONE (13:25)
[2022-04-29 13:50] LABS: Basophils % 0.5 %; Eosinophils # 0.2 K/mcL (0.0-0.6); Eosinophils % 2.9 %; Hematocrit 38.9 % (37.5-50.1); Hemoglobin 12.4 g/dL (12.9-16.9); Immature Granulocytes % 0.4 % (0-4); Lymphocytes # 1.4 K/mcL (0.6-4.6); Mean Corpuscular HGB Conc 31.9 g/dL (31.6-35.5); Mean Corpuscular Hemoglobin 28.6 pg (28.0-33.3); Mean Corpuscular Volume 89.6 fL (83.0-100.0); Mean Platelet Volume 9.4 fL (9.4-12.4); Monocytes # 0.8 K/mcL (0.0-1.3); Monocytes % 9.3 %; Neutrophils # 5.6 K/mcL (1.6-8.9); Platelet Count 414 K/mcL (140-400); Red Blood Count 4.34 M/mcL (4.19-5.50); Red Cell Distribution Width 12.7 % (11.5-14.5); Segmented Neutrophils % 69.9 %
[2022-04-29 14:26] LABS: Calcium 9.4 mg/dL (8.6-10.3); Potassium 4.4 mEq/L (3.5-5.1)
[2022-04-29] MEDS ORDERED: Naloxone 0.4 MG/ML INJ IVP PRN (15:23)
[2022-04-29] MEDS ORDERED: Acetaminophen 325 MG TABLET PO PRN (15:23)
[2022-04-29] MEDS ORDERED: Ondansetron 4 MG/2 ML VIAL IVP PRN (15:23)
[2022-04-29] MEDS ORDERED: Dextrose Gel 15 GM/37.5 ML TUBE PO PRN ×2 (15:27)
[2022-04-29] MEDS ORDERED: *HR* Dextrose 50 % in Water (Syg) 50 ML SYRINGE IVP PRN (15:27)
[2022-04-29] MEDS ORDERED: D5% in Water 1,000 ML IVC PRN (15:27)
[2022-04-29] MEDS: *HR* Heparin 5,000 UNIT/ML VIAL SQ SCH (17:38)
[2022-04-29] MEDS: Insulin LISPRO 300 UNITS/3 ML VIAL SUBQ SCH (17:39)
[2022-04-29 18:04] LABS: C-Reactive Protein 35 mg/L (Less than 10); Troponin I < 0.03 ng/mL (< 0.04)
[2022-04-29 18:46] LABS: Estimated Average Glucose 338 mg/dl; Hemoglobin A1C 13.4 %
[2022-04-29] MEDS: Piperacillin/Tazobactam 3.375 GM in 0.9 % Sodium Chloride Mini Bag 100 ML IVPB SCH (23:59)
[2022-04-30] MEDS: Insulin LISPRO 300 UNITS/3 ML VIAL SUBQ SCH ×3 (01:41→18:08)
[2022-04-30 05:09] LABS: Basophils % 0.6 %; Eosinophils # 0.3 K/mcL (0.0-0.6); Eosinophils % 4.8 %; Hematocrit 33.4 % (37.5-50.1); Hemoglobin 10.9 g/dL (12.9-16.9); Immature Granulocytes % 0.3 % (0-4); Lymphocytes # 1.4 K/mcL (0.6-4.6); Lymphocytes % 20.4 %; Mean Corpuscular HGB Conc 32.6 g/dL (31.6-35.5); Mean Corpuscular Volume 88.8 fL (83.0-100.0); Mean Platelet Volume 9.4 fL (9.4-12.4); Monocytes # 0.8 K/mcL (0.0-1.3); Monocytes % 12.2 %; Neutrophils # 4.1 K/mcL (1.6-8.9); Platelet Count 341 K/mcL (140-400); Red Blood Count 3.76 M/mcL (4.19-5.50); Red Cell Distribution Width 12.6 % (11.5-14.5); Segmented Neutrophils % 61.7 %; White Blood Count 6.7 K/mcL (4.3-11.1)
[2022-04-30 05:22] LABS: Albumin 3.3 g/dL (3.5-5.7); Albumin/Globulin Ratio 1.1 (1.1-2.2); Bilirubin,Total 0.3 mg/dL (0.3-1.0); Calcium 8.4 mg/dL (8.6-10.3); Total Protein 6.3 g/dL (6.4-8.9)
[2022-04-30] MEDS: *HR* Heparin 5,000 UNIT/ML VIAL SQ SCH ×2 (05:33→18:08)
[2022-04-30] MEDS: Piperacillin/Tazobactam 3.375 GM in 0.9 % Sodium Chloride Mini Bag 100 ML IVPB SCH ×2 (07:19→18:09)
[2022-04-30] MEDS ORDERED: Aspirin Enteric Coated 81 MG Tablet PO SCH (09:00)
[2022-04-30] MEDS ORDERED: Insulin DETEMIR 100 UNIT/ML X5UNITS SUBQ SCH (09:00)
[2022-04-30] MEDS ORDERED: *HR* FentaNYL (PF) 100 MCG/2 ML VIAL ONE (10:39)
[2022-04-30] MEDS ORDERED: *HR* Midazolam HCl 2 MG/2 ML VIAL ONE (10:39)
[2022-04-30] MEDS ORDERED: Lidocaine -MPF 2% 5 ML VIAL ONE (10:39)
[2022-04-30] MEDS ORDERED: Ondansetron 4 MG/2 ML VIAL ONE (10:39)
[2022-04-30] MEDS ORDERED: *HR* Propofol 200 MG/20 ML VIAL IVP ONE (10:40)
[2022-04-30] MEDS: Gabapentin 300 MG CAPSULE PO SCH ×2 (10:49→21:16)
[2022-04-30] MEDS ORDERED: Bupivacaine-MPF 0.25% 10 ML VIAL ONE (11:27)
[2022-04-30] MEDS ORDERED: EPHEDrine sulfate 50 MG/10 ML VIAL IVP ONE (12:22)
[2022-04-30] MEDS ORDERED: Insulin LISPRO 300 UNITS/3 ML VIAL SUBQ SCH (13:15)
[2022-04-30] MEDS ORDERED: Vancomycin 1,500 MG/265 ML IV.SOLN IVPB SCH (14:00)
[2022-04-30] MEDS ORDERED: Naloxone 0.4 MG/ML INJ IVP PRN (15:52)
[2022-04-30] MEDS ORDERED: Dextrose Gel 15 GM/37.5 ML TUBE PO PRN ×2 (15:52)
[2022-04-30] MEDS ORDERED: Ondansetron 4 MG/2 ML VIAL IVP PRN (15:52)
[2022-04-30] MEDS ORDERED: Acetaminophen 325 MG TABLET PO PRN (15:52)
[2022-04-30] MEDS ORDERED: D5% in Water 1,000 ML IVC PRN (15:52)
[2022-04-30] MEDS: Insulin DETEMIR 100 UNIT/ML X5UNITS SUBQ SCH (21:17)
[2022-05-01] MEDS: Insulin LISPRO 300 UNITS/3 ML VIAL SUBQ SCH ×6 (00:35→23:40)
[2022-05-01] MEDS: Gabapentin 300 MG CAPSULE PO SCH ×4 (00:37→21:42)
[2022-05-01] MEDS: Piperacillin/Tazobactam 3.375 GM in 0.9 % Sodium Chloride Mini Bag 100 ML IVPB SCH ×4 (01:21→23:40)
[2022-05-01] MEDS: *HR* Heparin 5,000 UNIT/ML VIAL SQ SCH ×2 (05:09→16:50)
[2022-05-01] MEDS: Insulin DETEMIR 100 UNIT/ML X5UNITS SUBQ SCH ×2 (08:14→21:42)
[2022-05-01] MEDS: Aspirin Enteric Coated 81 MG Tablet PO SCH (08:15)
[2022-05-01 09:34] LABS: Basophils % 0.2 %; Eosinophils % 0.2 %; Hematocrit 36.6 % (37.5-50.1); Hemoglobin 11.9 g/dL (12.9-16.9); Immature Granulocytes % 0.4 % (0-4); Lymphocytes # 1.2 K/mcL (0.6-4.6); Lymphocytes % 14.6 %; Mean Corpuscular HGB Conc 32.5 g/dL (31.6-35.5); Mean Corpuscular Volume 89.1 fL (83.0-100.0); Mean Platelet Volume 9.5 fL (9.4-12.4); Monocytes # 0.5 K/mcL (0.0-1.3); Monocytes % 5.9 %; Neutrophils # 6.6 K/mcL (1.6-8.9); Platelet Count 469 K/mcL (140-400); Red Blood Count 4.11 M/mcL (4.19-5.50); Red Cell Distribution Width 12.4 % (11.5-14.5); Segmented Neutrophils % 78.7 %; White Blood Count 8.4 K/mcL (4.3-11.1)
[2022-05-01 09:54] LABS: Potassium 3.8 mEq/L (3.5-5.1)
[2022-05-01] MEDS ORDERED: Insulin DETEMIR 100 UNIT/ML X5UNITS SUBQ ONE (11:26)
[2022-05-01] MEDS: Vancomycin 2,000 MG/520 ML IV.SOLN IVPB SCH (12:50)
[2022-05-02 02:59] LABS: Basophils # 0.1 K/mcL (0.0-0.2); Basophils % 0.7 %; Eosinophils # 0.3 K/mcL (0.0-0.6); Eosinophils % 3.7 %; Immature Granulocytes % 0.5 % (0-4); Lymphocytes # 1.9 K/mcL (0.6-4.6); Lymphocytes % 24.8 %; Mean Corpuscular HGB Conc 32.2 g/dL (31.6-35.5); Mean Corpuscular Hemoglobin 28.5 pg (28.0-33.3); Mean Corpuscular Volume 88.4 fL (83.0-100.0); Mean Platelet Volume 9.2 fL (9.4-12.4); Monocytes # 0.7 K/mcL (0.0-1.3); Monocytes % 8.5 %; Neutrophils # 4.7 K/mcL (1.6-8.9); Platelet Count 379 K/mcL (140-400); Red Blood Count 3.62 M/mcL (4.19-5.50); Red Cell Distribution Width 12.3 % (11.5-14.5); Segmented Neutrophils % 61.8 %; White Blood Count 7.6 K/mcL (4.3-11.1)
[2022-05-02 03:01] LABS: Hemoglobin 10.3 g/dL (12.9-16.9)
[2022-05-02 03:16] LABS: Calcium 8.5 mg/dL (8.6-10.3); Potassium 3.4 mEq/L (3.5-5.1)
[2022-05-02] MEDS: Insulin LISPRO 300 UNITS/3 ML VIAL SUBQ SCH ×4 (06:00→23:49)
[2022-05-02] MEDS: *HR* Heparin 5,000 UNIT/ML VIAL SQ SCH ×2 (06:00→17:44)
[2022-05-02] MEDS: Insulin DETEMIR 100 UNIT/ML X5UNITS SUBQ SCH ×2 (08:15→21:26)
[2022-05-02] MEDS: Piperacillin/Tazobactam 3.375 GM in 0.9 % Sodium Chloride Mini Bag 100 ML IVPB SCH ×3 (08:15→23:47)
[2022-05-02] MEDS: Aspirin Enteric Coated 81 MG Tablet PO SCH (08:15)
[2022-05-02] MEDS: Gabapentin 300 MG CAPSULE PO SCH ×3 (08:20→21:27)
[2022-05-02] MEDS: Vancomycin 2,000 MG/520 ML IV.SOLN IVPB SCH (12:16)
[2022-05-03] MEDS: *HR* Heparin 5,000 UNIT/ML VIAL SQ SCH ×2 (05:29→16:39)
[2022-05-03] MEDS: Insulin LISPRO 300 UNITS/3 ML VIAL SUBQ SCH ×4 (05:29→23:40)
[2022-05-03 06:15] LABS: Basophils % 0.4 %; Eosinophils # 0.3 K/mcL (0.0-0.6); Hematocrit 36.6 % (37.5-50.1); Hemoglobin 11.6 g/dL (12.9-16.9); Immature Granulocytes % 0.3 % (0-4); Lymphocytes # 1.4 K/mcL (0.6-4.6); Lymphocytes % 14.7 %; Mean Corpuscular HGB Conc 31.7 g/dL (31.6-35.5); Mean Corpuscular Hemoglobin 28.4 pg (28.0-33.3); Mean Corpuscular Volume 89.5 fL (83.0-100.0); Mean Platelet Volume 9.3 fL (9.4-12.4); Monocytes # 1.1 K/mcL (0.0-1.3); Monocytes % 12.1 %; Neutrophils # 6.5 K/mcL (1.6-8.9); Platelet Count 409 K/mcL (140-400); Red Blood Count 4.09 M/mcL (4.19-5.50); Red Cell Distribution Width 12.7 % (11.5-14.5); Segmented Neutrophils % 69.5 %; White Blood Count 9.4 K/mcL (4.3-11.1)
[2022-05-03] MEDS: Piperacillin/Tazobactam 3.375 GM in 0.9 % Sodium Chloride Mini Bag 100 ML IVPB SCH (08:27)
[2022-05-03] MEDS: Aspirin Enteric Coated 81 MG Tablet PO SCH (08:29)
[2022-05-03] MEDS: Gabapentin 300 MG CAPSULE PO SCH ×3 (08:38→19:25)
[2022-05-03] MEDS: Insulin DETEMIR 100 UNIT/ML X5UNITS SUBQ SCH ×2 (08:41→20:53)
[2022-05-03 08:48] LABS: Calcium 8.6 mg/dL (8.6-10.3); Potassium 3.9 mEq/L (3.5-5.1)
[2022-05-03 09:17] LABS: Calcium 8.8 mg/dL (8.6-10.3); Phosphorous 4.1 mg/dL (2.7-4.5); Potassium 3.7 mEq/L (3.5-5.1)
[2022-05-03] MEDS: 0.9 % Sodium Chloride 1,000 ML IVC SCH ×2 (10:52→20:53)
[2022-05-03] MEDS: amLODIPine 5 MG TABLET PO SCH (13:12)
[2022-05-04 04:53] LABS: Basophils % 0.3 %; Eosinophils # 0.3 K/mcL (0.0-0.6); Hematocrit 32.2 % (37.5-50.1); Hemoglobin 10.5 g/dL (12.9-16.9); Immature Granulocytes % 0.4 % (0-4); Lymphocytes # 1.3 K/mcL (0.6-4.6); Lymphocytes % 12.9 %; Mean Corpuscular HGB Conc 32.6 g/dL (31.6-35.5); Mean Corpuscular Hemoglobin 29.2 pg (28.0-33.3); Mean Corpuscular Volume 89.7 fL (83.0-100.0); Mean Platelet Volume 9.6 fL (9.4-12.4); Monocytes # 1.1 K/mcL (0.0-1.3); Monocytes % 10.9 %; Neutrophils # 7.5 K/mcL (1.6-8.9); Platelet Count 344 K/mcL (140-400); Red Blood Count 3.59 M/mcL (4.19-5.50); Red Cell Distribution Width 12.8 % (11.5-14.5); Segmented Neutrophils % 72.5 %; White Blood Count 10.3 K/mcL (4.3-11.1)
[2022-05-04 05:15] LABS: Calcium 8.3 mg/dL (8.6-10.3); Magnesium 2.1 mg/dL (1.6-2.6); Phosphorous 4.1 mg/dL (2.7-4.5); Potassium 3.5 mEq/L (3.5-5.1)
[2022-05-04] MEDS: *HR* Heparin 5,000 UNIT/ML VIAL SQ SCH ×2 (06:10→17:48)
[2022-05-04] MEDS: 0.9 % Sodium Chloride 1,000 ML IVC SCH ×2 (07:07→15:30)
[2022-05-04] MEDS: amLODIPine 5 MG TABLET PO SCH (07:08)
[2022-05-04] MEDS: Aspirin Enteric Coated 81 MG Tablet PO SCH (07:08)
[2022-05-04] MEDS: Insulin LISPRO 300 UNITS/3 ML VIAL SUBQ SCH ×4 (07:12→23:23)
[2022-05-04] MEDS: Gabapentin 300 MG CAPSULE PO SCH (07:12)
[2022-05-04] MEDS: Doxycycline 100 MG CAPSULE PO SCH ×2 (09:03→20:52)
[2022-05-04] MEDS: Insulin DETEMIR 100 UNIT/ML X5UNITS SUBQ SCH ×2 (09:04→20:52)
[2022-05-04 10:58] LABS: Uric Acid 4.6 mg/dL (2.3-7.6)
[2022-05-04] MEDS ORDERED: amLODIPine 5 MG TABLET PO ONE (11:27)
[2022-05-05 02:50] LABS: Calcium 8.6 mg/dL (8.6-10.3); Phosphorous 4.3 mg/dL (2.7-4.5); Potassium 3.5 mEq/L (3.5-5.1)
[2022-05-05] MEDS: 0.9 % Sodium Chloride 1,000 ML IVC SCH ×2 (04:30→14:34)
[2022-05-05] MEDS: *HR* Heparin 5,000 UNIT/ML VIAL SQ SCH ×2 (04:31→18:07)
[2022-05-05] MEDS: Gabapentin 300 MG CAPSULE PO SCH (09:16)
[2022-05-05] MEDS: Doxycycline 100 MG CAPSULE PO SCH ×2 (09:16→20:52)
[2022-05-05] MEDS: Aspirin Enteric Coated 81 MG Tablet PO SCH (09:17)
[2022-05-05] MEDS: amLODIPine 5 MG TABLET PO SCH (09:17)
[2022-05-05] MEDS: Insulin LISPRO 300 UNITS/3 ML VIAL SUBQ SCH ×5 (09:18→20:52)
[2022-05-05] MEDS: Insulin DETEMIR 100 UNIT/ML X5UNITS SUBQ SCH ×2 (09:34→20:52)
[2022-05-05] MEDS: Ipratropium/Albuterol Neb 3 ML IH PRN (22:13)
[2022-05-06] MEDS: 0.9 % Sodium Chloride 1,000 ML IVC SCH ×3 (00:12→10:26)
[2022-05-06 03:22] LABS: Basophils % 0.2 %; Eosinophils # 0.2 K/mcL (0.0-0.6); Eosinophils % 1.1 %; Hematocrit 30.3 % (37.5-50.1); Hemoglobin 9.5 g/dL (12.9-16.9); Immature Granulocytes % 0.5 % (0-4); Lymphocytes # 0.9 K/mcL (0.6-4.6); Lymphocytes % 6.6 %; Mean Corpuscular HGB Conc 31.4 g/dL (31.6-35.5); Mean Corpuscular Hemoglobin 27.9 pg (28.0-33.3); Mean Corpuscular Volume 88.9 fL (83.0-100.0); Mean Platelet Volume 9.6 fL (9.4-12.4); Monocytes # 1.3 K/mcL (0.0-1.3); Monocytes % 9.1 %; Neutrophils # 11.7 K/mcL (1.6-8.9); Platelet Count 318 K/mcL (140-400); Red Blood Count 3.41 M/mcL (4.19-5.50); Red Cell Distribution Width 13.2 % (11.5-14.5); Segmented Neutrophils % 82.5 %; White Blood Count 14.1 K/mcL (4.3-11.1)
[2022-05-06 03:45] LABS: Calcium 8.6 mg/dL (8.6-10.3); Potassium 3.8 mEq/L (3.5-5.1)
[2022-05-06] MEDS: Ipratropium/Albuterol Neb 3 ML IH PRN (05:35)
[2022-05-06] MEDS: *HR* Heparin 5,000 UNIT/ML VIAL SQ SCH ×2 (06:02→17:27)
[2022-05-06 06:16] LABS: Bacteria,Urine Few per hpf (None-Few); Bilirubin,Urine Negative (Negative); Blood,Urine Negative (Negative); Budding Yeast,Urine Few per hpf (None Seen); Clarity,Urine Clear (Clear); Color,Urine Colorless (Yellow); Glucose,Urine (UA) 500 mg/dL (Normal); Ketones,Urine Negative (Negative); Leukocyte Esterase,Urine Large (Negative); Mucus,Urine Few per lpf (None-Few); Nitrite,Urine Negative (Negative); PH,Urine 5.5 pH Units (5.0-8.0); Protein,Urine Negative (Neg-Trace); Specific Gravity,Urine 1.008 (1.010-1.025); Squamous Epithelial Cell,Urine Moderate per hpf (None-Few); Urobilinogen,Urine Normal (Normal); WBC,Urine 30-50 per hpf (0-3)
[2022-05-06] MEDS: Insulin LISPRO 300 UNITS/3 ML VIAL SUBQ SCH ×4 (08:36→21:07)
[2022-05-06] MEDS: Doxycycline 100 MG CAPSULE PO SCH ×2 (08:37→21:06)
[2022-05-06] MEDS: amLODIPine 5 MG TABLET PO SCH (08:37)
[2022-05-06] MEDS: Aspirin Enteric Coated 81 MG Tablet PO SCH (08:37)
[2022-05-06] MEDS: Insulin DETEMIR 100 UNIT/ML X5UNITS SUBQ SCH ×2 (08:37→21:06)
[2022-05-06] MEDS: Gabapentin 300 MG CAPSULE PO SCH (08:38)
[2022-05-06] MEDS ORDERED: levoFLOXacin 750 MG TABLET PO SCH (09:00)
[2022-05-06] MEDS ORDERED: CeFAZolin 2,000 MG/120 ML BAG IVPB SCH (10:15)
[2022-05-06 11:38] LABS: Adenovirus Not Detected (Not Detect); Bordetella Pertussis Not Detected (Not Detect); Chlamydophila pneumoniae Not Detected (Not Detect); Coronavirus 229E Not Detected (Not Detect); Coronavirus HKU1 Not Detected (Not Detect); Coronavirus NL63 Not Detected (Not Detect); Coronavirus OC43 Not Detected (Not Detect); Human Metapneumovirus Not Detected (Not Detect); Human Rhinovirus/Enterovirus Not Detected (Not Detect); Influenza A Subtype 2009 H1 Not Detected (Not Detect); Influenza B Not Detected (Not Detect); Mycoplasma pneumoniae Not Detected (Not Detect); Parainfluenza Virus 1 Not Detected (Not Detect); Parainfluenza Virus 2 Not Detected (Not Detect); Parainfluenza Virus 3 Not Detected (Not Detect); Parainfluenza Virus 4 Not Detected (Not Detect); Respiratory Syncytial Virus Not Detected (Not Detect); SARS-CoV-2 Not Detected (Not Detect)
[2022-05-06] MEDS ORDERED: Ipratropium/Albuterol Neb 3 ML IH SCH (12:00)
[2022-05-06] MEDS: Ipratropium/Albuterol Neb 3 ML IH SCH ×3 (14:01→20:20)
[2022-05-07 03:22] LABS: Basophils % 0.2 %; Eosinophils # 0.1 K/mcL (0.0-0.6); Eosinophils % 0.5 %; Hematocrit 30.4 % (37.5-50.1); Hemoglobin 9.4 g/dL (12.9-16.9); Immature Granulocytes % 0.5 % (0-4); Lymphocytes # 0.9 K/mcL (0.6-4.6); Lymphocytes % 7.7 %; Mean Corpuscular HGB Conc 30.9 g/dL (31.6-35.5); Mean Corpuscular Hemoglobin 27.9 pg (28.0-33.3); Mean Corpuscular Volume 90.2 fL (83.0-100.0); Monocytes # 1.3 K/mcL (0.0-1.3); Monocytes % 10.7 %; Neutrophils # 9.7 K/mcL (1.6-8.9); Platelet Count 311 K/mcL (140-400); Red Blood Count 3.37 M/mcL (4.19-5.50); Red Cell Distribution Width 13.4 % (11.5-14.5); Segmented Neutrophils % 80.4 %
[2022-05-07] MEDS: Ipratropium/Albuterol Neb 3 ML IH SCH ×4 (03:35→22:52)
[2022-05-07 03:36] LABS: Calcium 8.5 mg/dL (8.6-10.3); Magnesium 1.8 mg/dL (1.6-2.6); Phosphorous 4.2 mg/dL (2.7-4.5); Potassium 3.6 mEq/L (3.5-5.1)
[2022-05-07] MEDS: *HR* Heparin 5,000 UNIT/ML VIAL SQ SCH ×2 (06:43→19:43)
[2022-05-07] MEDS: Gabapentin 300 MG CAPSULE PO SCH (07:22)
[2022-05-07] MEDS: Aspirin Enteric Coated 81 MG Tablet PO SCH (07:22)
[2022-05-07] MEDS: amLODIPine 5 MG TABLET PO SCH (07:22)
[2022-05-07] MEDS: Doxycycline 100 MG CAPSULE PO SCH ×2 (07:22→20:50)
[2022-05-07] MEDS: Insulin LISPRO 300 UNITS/3 ML VIAL SUBQ SCH ×6 (07:23→23:57)
[2022-05-07] MEDS: Insulin DETEMIR 100 UNIT/ML X5UNITS SUBQ SCH ×2 (08:55→20:51)
[2022-05-07] MEDS: 0.9 % Sodium Chloride 1,000 ML IVC SCH (09:30)
[2022-05-07] MEDS ORDERED: Saline Nasal Spray 44 ML BOTTLE NS PRN (10:23)
[2022-05-07] MEDS: Albumin 25% 25gram/100mL 25 GM/100 ML IV.SOLN IVPB SCH ×3 (12:38→23:57)
[2022-05-07] MEDS ORDERED: EPINEPHrine 1 MG/ML VIAL IV ONE ×2 (14:25→14:30)
[2022-05-07] MEDS ORDERED: Norepinephrine 4 MG/254 ML in 0.9% Sodium Chloride IVC ONE (14:25)
[2022-05-07] MEDS ORDERED: *HR* Magnesium Sulfate 2 GM/50 ML PIGGYBACK IVPB ONE (14:25)
[2022-05-07] MEDS ORDERED: *HR* EPINEPHrine 1 MG/10 ML SYRINGE IVP ONE ×2 (14:25→14:30)
[2022-05-07] MEDS ORDERED: WATER IVPB ONE (14:30)
[2022-05-07] MEDS ORDERED: D5 IVPB ONE (14:30)
[2022-05-07] MEDS ORDERED: Artificial Tears SOLN 15 ML BOTTLE BOTH EYES PRN (15:53)
[2022-05-07 16:10] LABS: ABG Base Excess -10 mEq/L (-2 to 3); ABG HCO3 22 mEq/L (21-27); ABG Oxygen Saturation 71 % (95-98); ABG PCO2 82 mmHg (35-45); ABG PH 7.03 pH Units (7.32-7.45); ABG PO2 55 mmHg (85-104); ABG TCO2 24 mEq/L (20-26); Blood Gas VT 480 cc
[2022-05-07] MEDS ORDERED: Norepinephrine 4 MG/254 ML IV.SOLN IVC ONE (17:14)
[2022-05-07] MEDS ORDERED: *HR* LORazepam 2 MG/ML VIAL IVP STA (18:00)
[2022-05-07 18:28] LABS: Basophils % 0.2 %; Hematocrit 28.6 % (37.5-50.1); Immature Granulocytes % 1.3 % (0-4); Lymphocytes # 0.6 K/mcL (0.6-4.6); Lymphocytes % 2.8 %; Mean Corpuscular HGB Conc 31.5 g/dL (31.6-35.5); Mean Corpuscular Hemoglobin 28.6 pg (28.0-33.3); Mean Corpuscular Volume 90.8 fL (83.0-100.0); Mean Platelet Volume 9.5 fL (9.4-12.4); Monocytes # 3.2 K/mcL (0.0-1.3); Monocytes % 15.5 %; Neutrophils # 16.7 K/mcL (1.6-8.9); Platelet Count 320 K/mcL (140-400); Red Blood Count 3.15 M/mcL (4.19-5.50); Red Cell Distribution Width 13.5 % (11.5-14.5); Segmented Neutrophils % 80.2 %
[2022-05-07 18:31] LABS: White Blood Count 20.8 K/mcL (4.3-11.1)
[2022-05-07] MEDS: Midazolam HCl 50 MG/50 ML IV.SOLN IVC SCH (18:46)
[2022-05-07 18:49] LABS: ABG Base Excess -1 mEq/L (-2 to 3); ABG HCO3 25 mEq/L (21-27); ABG Oxygen Saturation 97 % (95-98); ABG PCO2 42 mmHg (35-45); ABG PH 7.38 pH Units (7.32-7.45); ABG PO2 89 mmHg (85-104); ABG TCO2 26 mEq/L (20-26); Blood Gas Modality ASSIST CONTROL; Blood Gas VT 480 cc
[2022-05-07 18:50] LABS: Albumin 3.3 g/dL (3.5-5.7); Albumin/Globulin Ratio 1.1 (1.1-2.2); Bilirubin,Total 0.8 mg/dL (0.3-1.0); Magnesium 2.7 mg/dL (1.6-2.6); Potassium 4.1 mEq/L (3.5-5.1); Total Protein 6.3 g/dL (6.4-8.9)
[2022-05-07] MEDS ORDERED: levETIRAcetam 1,000 MG in 0.9 % Sodium Chloride 100 ML IVPB ONE (19:31)
[2022-05-07] MEDS: Artificial Tears SOLN 15 ML BOTTLE BOTH EYES SCH ×3 (19:43→23:57)
[2022-05-07] MEDS: Chlorhexidine Rinse 15 ML MOUTHWASH MM SCH (20:50)
[2022-05-07] MEDS ORDERED: *HR* Heparin 5,000 UNIT/ML VIAL IVP PRN ×2 (23:31)
[2022-05-07] MEDS ORDERED: *HR* Heparin 5,000 UNIT/ML VIAL IVP ONE (23:31)
[2022-05-08] MEDS: Heparin 25,000UNIT/250ML 1/2NS 25,000 UNIT/250 ML IV.SOLN IVC SCH ×3 (00:03→23:52)
[2022-05-08] MEDS: Midazolam HCl 50 MG/50 ML IV.SOLN IVC SCH ×4 (00:57→12:07)
[2022-05-08] MEDS: Ipratropium/Albuterol Neb 3 ML IH SCH ×4 (03:25→20:57)
[2022-05-08 03:44] LABS: ABG Base Excess 0 mEq/L (-2 to 3); ABG HCO3 24 mEq/L (21-27); ABG Oxygen Saturation 100 % (95-98); ABG PCO2 33 mmHg (35-45); ABG PH 7.46 pH Units (7.32-7.45); ABG PO2 169 mmHg (85-104); ABG TCO2 25 mEq/L (20-26); Blood Gas VT 480 cc
[2022-05-08] MEDS: Artificial Tears SOLN 15 ML BOTTLE BOTH EYES SCH ×6 (04:36→23:51)
[2022-05-08 04:50] LABS: Basophils % 0.1 %; Hematocrit 23.5 % (37.5-50.1); Hemoglobin 7.9 g/dL (12.9-16.9); Immature Granulocytes % 0.5 % (0-4); Lymphocytes # 0.5 K/mcL (0.6-4.6); Lymphocytes % 3.6 %; Mean Corpuscular HGB Conc 33.6 g/dL (31.6-35.5); Mean Corpuscular Volume 86.4 fL (83.0-100.0); Mean Platelet Volume 9.9 fL (9.4-12.4); Monocytes # 1.3 K/mcL (0.0-1.3); Monocytes % 8.9 %; Platelet Count 248 K/mcL (140-400); Red Blood Count 2.72 M/mcL (4.19-5.50); Red Cell Distribution Width 13.5 % (11.5-14.5); Segmented Neutrophils % 86.9 %; White Blood Count 14.9 K/mcL (4.3-11.1)
[2022-05-08 05:11] LABS: Albumin 3.3 g/dL (3.5-5.7); Albumin/Globulin Ratio 1.3 (1.1-2.2); Bilirubin,Total 0.4 mg/dL (0.3-1.0); Calcium 8.8 mg/dL (8.6-10.3); Globulin 2.6 g/dL (2.4-3.5); Magnesium 2.4 mg/dL (1.6-2.6); Phosphorous 4.7 mg/dL (2.7-4.5); Potassium 3.4 mEq/L (3.5-5.1); Total Protein 5.9 g/dL (6.4-8.9)
[2022-05-08] MEDS: Insulin LISPRO 300 UNITS/3 ML VIAL SUBQ SCH ×5 (06:29→23:52)
[2022-05-08 06:30] LABS: ABG Base Excess 0 mEq/L (-2 to 3); ABG HCO3 23 mEq/L (21-27); ABG Oxygen Saturation 99 % (95-98); ABG PCO2 31 mmHg (35-45); ABG PH 7.48 pH Units (7.32-7.45); ABG PO2 137 mmHg (85-104); ABG TCO2 24 mEq/L (20-26); Blood Gas Modality ASSIST CONTROL; Blood Gas VT 430 cc
[2022-05-08] MEDS ORDERED: Potassium Chloride Elixir 20 MEQ/15 ML UDC GTUBE ONE (07:57)
[2022-05-08] MEDS ORDERED: levoFLOXacin 750 MG/150 ML 750 MG/150 ML BAG IVPB SCH (08:00)
[2022-05-08] MEDS: Chlorhexidine Rinse 15 ML MOUTHWASH MM SCH ×2 (08:19→19:30)
[2022-05-08] MEDS: Aspirin Enteric Coated 81 MG Tablet PO SCH (08:20)
[2022-05-08] MEDS: Pantoprazole 40 MG VIAL IVP SCH (08:20)
[2022-05-08] MEDS: FentaNYL (PF) 1,000 MCG/100 ML IV.SOLN IVC SCH (08:27)
[2022-05-08] MEDS: Aspirin 81 MG TAB.CHEW PO SCH (09:42)
[2022-05-08 12:20] LABS: Hematocrit 21.7 % (37.5-50.1); Hemoglobin 7.1 g/dL (12.9-16.9)
[2022-05-08] MEDS: Doxycycline 100 MG in 0.9 % Sodium Chloride Mini Bag 100 ML IVPB SCH (17:19)
[2022-05-08] MEDS: *HR* Dextrose 50 % in Water (Syg) 50 ML SYRINGE IVP PRN (17:23)
[2022-05-08 17:34] LABS: Hematocrit 22.2 % (37.5-50.1); Hemoglobin 7.3 g/dL (12.9-16.9)
[2022-05-09 00:28] LABS: Hemoglobin 7.9 g/dL (12.9-16.9)
[2022-05-09] MEDS: Scopolamine Patch 1.5 MG PATCH.TD72 TD SCH (03:54)
[2022-05-09] MEDS: Insulin LISPRO 300 UNITS/3 ML VIAL SUBQ SCH ×5 (03:58→21:15)
[2022-05-09] MEDS: Artificial Tears SOLN 15 ML BOTTLE BOTH EYES SCH ×5 (03:58→21:34)
[2022-05-09] MEDS: FentaNYL (PF) 1,000 MCG/100 ML IV.SOLN IVC SCH ×2 (03:59→10:13)
[2022-05-09 04:22] LABS: ABG Ionized Calcium 1.01 mmol/L (1.15-1.35)
[2022-05-09] MEDS: Ipratropium/Albuterol Neb 3 ML IH SCH ×4 (04:29→22:37)
[2022-05-09] MEDS: Doxycycline 100 MG in 0.9 % Sodium Chloride Mini Bag 100 ML IVPB SCH ×2 (05:04→17:33)
[2022-05-09] MEDS ORDERED: *HR* Metoprolol 5 MG/5 ML VIAL IVP ONE (05:10)
[2022-05-09 05:26] LABS: ABG Base Excess -1 mEq/L (-2 to 3); ABG HCO3 23 mEq/L (21-27); ABG Oxygen Saturation 97 % (95-98); ABG PCO2 34 mmHg (35-45); ABG PH 7.43 pH Units (7.32-7.45); ABG PO2 84 mmHg (85-104); ABG TCO2 24 mEq/L (20-26); Blood Gas Modality ASSIST CONTROL; Blood Gas VT 430 cc
[2022-05-09 05:42] LABS: Albumin 3.1 g/dL (3.5-5.7); Albumin/Globulin Ratio 1.1 (1.1-2.2); Bilirubin,Total 0.4 mg/dL (0.3-1.0); Calcium 8.3 mg/dL (8.6-10.3); Globulin 2.8 g/dL (2.4-3.5); Magnesium 2.4 mg/dL (1.6-2.6); Phosphorous 6.1 mg/dL (2.7-4.5); Potassium 3.6 mEq/L (3.5-5.1); Total Protein 5.9 g/dL (6.4-8.9)
[2022-05-09 05:54] LABS: Hematocrit 23.8 % (37.5-50.1); Hemoglobin 7.5 g/dL (12.9-16.9)
[2022-05-09] MEDS ORDERED: Amiodarone Premix 150 MG/100 ML BAG IVPB ONE ×2 (07:32→07:33)
[2022-05-09] MEDS ORDERED: Amiodarone Premix 360 MG/200 ML BAG IVC ONE (07:32)
[2022-05-09] MEDS ORDERED: Potassium Chloride Elixir 20 MEQ/15 ML UDC GTUBE ONE (07:33)
[2022-05-09] MEDS: Chlorhexidine Rinse 15 ML MOUTHWASH MM SCH ×2 (08:09→20:56)
[2022-05-09] MEDS: Aspirin 81 MG TAB.CHEW PO SCH (08:09)
[2022-05-09] MEDS: Pantoprazole 40 MG VIAL IVP SCH (08:10)
[2022-05-09] MEDS: Cefepime HCl 2,000 MG in 0.9 % Sodium Chloride Mini Bag 100 ML IVPB SCH (10:41)
[2022-05-09] MEDS ORDERED: GuaiFENesin Liq 200 MG/10 ML UDC GTUBE SCH (12:00)
[2022-05-09] MEDS: Furosemide 240 MG in 0.9 % Sodium Chloride 96 ML IVC SCH (12:10)
[2022-05-09] MEDS: Glycopyrrolate 1 MG TABLET PO SCH ×3 (12:28→20:56)
[2022-05-09 12:42] LABS: Hematocrit 23.2 % (37.5-50.1); Hemoglobin 7.4 g/dL (12.9-16.9)
[2022-05-09] MEDS: Amiodarone Premix 360 MG/200 ML BAG IVC SCH (13:57)
[2022-05-09 17:06] LABS: Bacteria,Urine Few per hpf (None-Few); Bilirubin,Urine Negative (Negative); Blood,Urine Moderate (Negative); Budding Yeast,Urine Few per hpf (None Seen); Clarity,Urine Turbid (Clear); Color,Urine Light-Yellow (Yellow); Glucose,Urine (UA) 150 mg/dL (Normal); Ketones,Urine Negative (Negative); Leukocyte Esterase,Urine Negative (Negative); Mucus,Urine Few per lpf (None-Few); Nitrite,Urine Negative (Negative); PH,Urine 5.5 pH Units (5.0-8.0); Protein,Urine 30 mg/dL (Neg-Trace); Specific Gravity,Urine 1.014 (1.010-1.025); Urobilinogen,Urine Normal (Normal)
[2022-05-09] MEDS: Insulin DETEMIR 100 UNIT/ML X5UNITS SUBQ SCH (17:30)
[2022-05-09] MEDS: *HR* Heparin 5,000 UNIT/ML VIAL SQ SCH (17:33)
[2022-05-09] MEDS ORDERED: Cefepime HCl 2,000 MG in 0.9 % Sodium Chloride Mini Bag 100 ML IVPB SCH (18:00)
[2022-05-09 19:31] LABS: Hematocrit 22.9 % (37.5-50.1); Hemoglobin 7.3 g/dL (12.9-16.9)
[2022-05-10] MEDS: Artificial Tears SOLN 15 ML BOTTLE BOTH EYES SCH ×6 (00:07→20:20)
[2022-05-10] MEDS: Insulin LISPRO 300 UNITS/3 ML VIAL SUBQ SCH ×6 (00:08→20:21)
[2022-05-10] MEDS: Amiodarone Premix 360 MG/200 ML BAG IVC SCH ×2 (02:00→14:50)
[2022-05-10] MEDS: Ipratropium/Albuterol Neb 3 ML IH SCH ×4 (04:19→21:56)
[2022-05-10 04:24] LABS: ABG Base Excess -2 mEq/L (-2 to 3); ABG HCO3 22 mEq/L (21-27); ABG Oxygen Saturation 97 % (95-98); ABG PCO2 31 mmHg (35-45); ABG PH 7.46 pH Units (7.32-7.45); ABG PO2 84 mmHg (85-104); ABG TCO2 23 mEq/L (20-26); Blood Gas VT 430 cc
[2022-05-10] MEDS: *HR* Heparin 5,000 UNIT/ML VIAL SQ SCH ×2 (05:45→18:08)
[2022-05-10] MEDS: Doxycycline 100 MG in 0.9 % Sodium Chloride Mini Bag 100 ML IVPB SCH ×2 (05:48→18:03)
[2022-05-10 05:54] LABS: Basophils % 0.2 %; Eosinophils % 0.2 %; Hematocrit 23.5 % (37.5-50.1); Hemoglobin 7.6 g/dL (12.9-16.9); Immature Granulocytes % 0.6 % (0-4); Lymphocytes # 0.7 K/mcL (0.6-4.6); Lymphocytes % 4.9 %; Mean Corpuscular HGB Conc 32.3 g/dL (31.6-35.5); Mean Corpuscular Hemoglobin 28.1 pg (28.0-33.3); Mean Platelet Volume 9.7 fL (9.4-12.4); Monocytes # 1.3 K/mcL (0.0-1.3); Monocytes % 9.6 %; Neutrophils # 11.2 K/mcL (1.6-8.9); Platelet Count 265 K/mcL (140-400); Red Cell Distribution Width 13.9 % (11.5-14.5); Segmented Neutrophils % 84.5 %; White Blood Count 13.2 K/mcL (4.3-11.1)
[2022-05-10 06:10] LABS: Albumin 3.1 g/dL (3.5-5.7); Albumin/Globulin Ratio 1.1 (1.1-2.2); Bilirubin,Total 0.3 mg/dL (0.3-1.0); Calcium 8.3 mg/dL (8.6-10.3); Globulin 2.9 g/dL (2.4-3.5); Potassium 3.3 mEq/L (3.5-5.1)
[2022-05-10] MEDS: *HR* Dextrose 50 % in Water (Syg) 50 ML SYRINGE IVP PRN (06:59)
[2022-05-10] MEDS: Aspirin 81 MG TAB.CHEW PO SCH (08:39)
[2022-05-10] MEDS: Pantoprazole 40 MG VIAL IVP SCH (08:39)
[2022-05-10] MEDS: Chlorhexidine Rinse 15 ML MOUTHWASH MM SCH ×2 (08:39→20:21)
[2022-05-10] MEDS: Cefepime HCl 2,000 MG in 0.9 % Sodium Chloride Mini Bag 100 ML IVPB SCH (08:39)
[2022-05-10] MEDS: Insulin DETEMIR 100 UNIT/ML X5UNITS SUBQ SCH ×2 (08:41→20:21)
[2022-05-10] MEDS: Glycopyrrolate 1 MG TABLET PO SCH (08:41)
[2022-05-10] MEDS: FentaNYL (PF) 1,000 MCG/100 ML IV.SOLN IVC SCH ×2 (08:56→18:12)
[2022-05-10] MEDS ORDERED: Potassium Chloride Elixir 20 MEQ/15 ML UDC GTUBE PRN (10:21)
[2022-05-10] MEDS: Furosemide 240 MG in 0.9 % Sodium Chloride 96 ML IVC SCH (10:22)
[2022-05-10 10:37] LABS: Folate 9.4 ng/mL (3.0-16.0)
[2022-05-10] MEDS ORDERED: Atropine Sulfate 1% 40 DROP/2 ML BOTTLE SL PRN (11:16)
[2022-05-11] MEDS: Artificial Tears SOLN 15 ML BOTTLE BOTH EYES SCH ×6 (00:08→19:56)
[2022-05-11] MEDS: Insulin LISPRO 300 UNITS/3 ML VIAL SUBQ SCH ×6 (00:08→19:58)
[2022-05-11] MEDS ORDERED: Norepinephrine 4 MG/254 ML IV.SOLN IVC ONE (01:53)
[2022-05-11] MEDS ORDERED: Norepinephrine 4 MG in D5% in Water 250 ML IVC SCH (02:00)
[2022-05-11] MEDS: Norepinephrine 4 MG/254 ML IV.SOLN IVC SCH (02:06)
[2022-05-11] MEDS: Ipratropium/Albuterol Neb 3 ML IH SCH ×4 (03:32→19:57)
[2022-05-11] MEDS: Furosemide 240 MG in 0.9 % Sodium Chloride 96 ML IVC SCH (03:40)
[2022-05-11] MEDS: Amiodarone Premix 360 MG/200 ML BAG IVC SCH ×2 (03:40→16:10)
[2022-05-11 03:54] LABS: Basophils % 0.2 %; Eosinophils % 0.2 %; Hematocrit 23.3 % (37.5-50.1); Hemoglobin 7.3 g/dL (12.9-16.9); Immature Granulocytes % 0.6 % (0-4); Lymphocytes # 0.6 K/mcL (0.6-4.6); Lymphocytes % 4.2 %; Mean Corpuscular HGB Conc 31.3 g/dL (31.6-35.5); Mean Corpuscular Hemoglobin 28.1 pg (28.0-33.3); Mean Corpuscular Volume 89.6 fL (83.0-100.0); Mean Platelet Volume 9.8 fL (9.4-12.4); Monocytes % 7.2 %; Neutrophils # 12.6 K/mcL (1.6-8.9); Platelet Count 317 K/mcL (140-400); Red Cell Distribution Width 14.1 % (11.5-14.5); Segmented Neutrophils % 87.6 %; White Blood Count 14.4 K/mcL (4.3-11.1)
[2022-05-11 04:03] LABS: ABG Base Excess -3 mEq/L (-2 to 3); ABG HCO3 23 mEq/L (21-27); ABG Oxygen Saturation 94 % (95-98); ABG PCO2 39 mmHg (35-45); ABG PH 7.37 pH Units (7.32-7.45); ABG PO2 71 mmHg (85-104); ABG TCO2 24 mEq/L (20-26); Blood Gas VT 430 cc
[2022-05-11 04:11] LABS: Calcium 7.8 mg/dL (8.6-10.3); Potassium 4.1 mEq/L (3.5-5.1)
[2022-05-11] MEDS: Doxycycline 100 MG in 0.9 % Sodium Chloride Mini Bag 100 ML IVPB SCH ×2 (05:31→18:09)
[2022-05-11] MEDS: *HR* Heparin 5,000 UNIT/ML VIAL SQ SCH ×2 (05:31→18:09)
[2022-05-11] MEDS: Pantoprazole 40 MG VIAL IVP SCH (07:59)
[2022-05-11] MEDS: Chlorhexidine Rinse 15 ML MOUTHWASH MM SCH ×2 (07:59→19:56)
[2022-05-11] MEDS: Aspirin 81 MG TAB.CHEW PO SCH (08:00)
[2022-05-11] MEDS: Cefepime HCl 2,000 MG in 0.9 % Sodium Chloride Mini Bag 100 ML IVPB SCH (08:01)
[2022-05-11] MEDS: FentaNYL (PF) 1,000 MCG/100 ML IV.SOLN IVC SCH ×2 (08:01→19:57)
[2022-05-11] MEDS: Insulin DETEMIR 100 UNIT/ML X5UNITS SUBQ SCH ×2 (08:02→19:57)
[2022-05-12] MEDS: Norepinephrine 4 MG/254 ML IV.SOLN IVC SCH ×2 (00:14→09:06)
[2022-05-12] MEDS: Insulin LISPRO 300 UNITS/3 ML VIAL SUBQ SCH ×3 (00:14→07:41)
[2022-05-12] MEDS: Artificial Tears SOLN 15 ML BOTTLE BOTH EYES SCH ×3 (00:48→07:41)
[2022-05-12] MEDS: Amiodarone Premix 360 MG/200 ML BAG IVC SCH (03:35)
[2022-05-12] MEDS: Scopolamine Patch 1.5 MG PATCH.TD72 TD SCH (03:35)
[2022-05-12] MEDS: Ipratropium/Albuterol Neb 3 ML IH SCH ×2 (03:51→09:53)
[2022-05-12 04:02] LABS: Basophils % 0.2 %; Eosinophils # 0.3 K/mcL (0.0-0.6); Eosinophils % 3.1 %; Hematocrit 21.9 % (37.5-50.1); Immature Granulocytes % 0.5 % (0-4); Mean Corpuscular Hemoglobin 28.1 pg (28.0-33.3); Mean Platelet Volume 9.8 fL (9.4-12.4); Monocytes # 1.2 K/mcL (0.0-1.3); Monocytes % 10.9 %; Neutrophils # 8.2 K/mcL (1.6-8.9); Platelet Count 264 K/mcL (140-400); Red Blood Count 2.49 M/mcL (4.19-5.50); Red Cell Distribution Width 14.2 % (11.5-14.5); Segmented Neutrophils % 76.3 %; White Blood Count 10.7 K/mcL (4.3-11.1)
[2022-05-12 04:19] LABS: Albumin 2.7 g/dL (3.5-5.7); Albumin/Globulin Ratio 0.9 (1.1-2.2); Bilirubin,Total 0.3 mg/dL (0.3-1.0); Calcium 7.8 mg/dL (8.6-10.3); Globulin 2.9 g/dL (2.4-3.5); Potassium 3.6 mEq/L (3.5-5.1); Total Protein 5.6 g/dL (6.4-8.9)
[2022-05-12 04:48] LABS: ABG Base Excess -3 mEq/L (-2 to 3); ABG HCO3 21 mEq/L (21-27); ABG Oxygen Saturation 94 % (95-98); ABG PCO2 33 mmHg (35-45); ABG PH 7.42 pH Units (7.32-7.45); ABG PO2 67 mmHg (85-104); ABG TCO2 22 mEq/L (20-26); Blood Gas VT 430 cc
[2022-05-12] MEDS: Doxycycline 100 MG in 0.9 % Sodium Chloride Mini Bag 100 ML IVPB SCH (04:58)
[2022-05-12] MEDS: *HR* Heparin 5,000 UNIT/ML VIAL SQ SCH (04:58)
[2022-05-12] MEDS: Chlorhexidine Rinse 15 ML MOUTHWASH MM SCH (07:39)
[2022-05-12] MEDS: Aspirin 81 MG TAB.CHEW PO SCH (07:40)
[2022-05-12] MEDS: Cefepime HCl 2,000 MG in 0.9 % Sodium Chloride Mini Bag 100 ML IVPB SCH (07:40)
[2022-05-12] MEDS: Pantoprazole 40 MG VIAL IVP SCH (07:40)
[2022-05-12] MEDS: Insulin DETEMIR 100 UNIT/ML X5UNITS SUBQ SCH (07:41)
[2022-05-12 10:20] VITALS: TEMP 98.4; O2SAT 93
[2022-05-12 11:12] VITALS: BP 134/47; PULSE 66
== END 2022-05-12 12:45 | disposition expired | DRG 616 ==
LOC: 3BNU 10:08 → EMEROOARM 10:08 → SUATTDRO 14:48 → 3BNU 15:52 → SUATTDRO 04-30 13:09 → ICNU 05-07 14:32
PROVIDERS: ADMIT General Practice; ATTEND Internal Medicine